=== PATIENT | female | born 1955 | race Caucasian/White ===

== ENCOUNTER 2023-07-07 09:24 | Outpatient (OUT) | payer MEDICARE, OTHER, SELFPAY ==
--- NOTE | 2023-07-07 09:28 | US_ITS ---
[address] [address] Patient Name: TEREZA MCGREGOR MRN: [id number] date: 1955 Sex: F Assigned Patient Location: Current Patient Location: US Accession/Order Number: [id number] Exam Date: 07/07/2023 09:32 Report Date: 07/07/2023 10:05 At the request of: MAAME GERARDO Procedure: US renal BI EXAMINATION: US renal BI HISTORY: Ureteral Stone With Hydronephrosis N13.2 COMPARISON: No relevant comparison available. TECHNIQUE: Ultrasound examination was performed of the bladder. FINDINGS: Right Kidney: Normal in contour. Area of anechoic echogenicity in the upper pole measuring 4.6 cm, simple cyst. Multiple echogenic foci, nonobstructing nephrolithiasis. No solid cortical mass or hydronephrosis. The cortex measures 0.9 cm Height: 5.8 cm Length: 9.2 cm Width: 5.1 cm Multiple echogenic foci, nonobstructing nephrolithiasis. No solid cortical mass or hydronephrosis. The cortex measures 1 cm Areas of anechoic Height: 5.0 cm Length: 8.1 cm Width: 4.4 cm Urinary bladder is normal measuring 179 mL US/US renal BI IMPRESSION: Bilateral nonobstructing nephrolithiasis Electronically authenticated by: GUSTAVO CLEVELAND Date: 07/07/2023 10:05
--- NOTE | 2023-07-07 09:28 | XR_ITS ---
The [address] [address] Patient Name: TEREZA MCGREGOR MRN: [id number] date: 1955 Sex: F Assigned Patient Location: US Current Patient Location: US Accession/Order Number: [id number] Exam Date: 07/07/2023 09:32 Report Date: 07/07/2023 11:10 At the request of: MAAME GERARDO Procedure: XR abdomen 1V EXAMINATION: XR abdomen 1V HISTORY: Ureteral Stone With Hydronephrosis N13.2 COMPARISON: No relevant comparison available. FINDINGS: KIDNEY/URETER - RIGHT: No visible renal or ureteral calcifications. KIDNEY/URETER - LEFT: No visible renal or ureteral calcifications. PELVIS: No visible ureteral calcifications. Any visible calcifications favor phleboliths. BOWEL: No abnormal dilation or deviation. BONES: No acute abnormality. OTHER: Negative. No abnormal gaseous collections. XR/XR abdomen 1V IMPRESSION: No definite urinary tract calculi Electronically authenticated by: GUSTAVO CLEVELAND Date: 07/07/2023 11:10
== END 2023-07-07 09:25 | disposition home or self-care (01) ==
LOC: US 09:24
PROVIDERS: PCP Internal Medicine; Visit Provider Urology
DX: N13.2 Hydronephrosis with renal and ureteral calculous obstruction (principal)
CPT/HCPCS: 74018; 76775

== ENCOUNTER 2025-02-24 11:43 | Outpatient (OUT) | payer MEDICARE, OTHER, SELFPAY ==
--- OUTSIDE RECORDS SUMMARY | 2025-02-22 06:47 | XMS_ITS | Continuity of Care Document ---
Author Organization [facility] Address [address] [place] [address] Phone Care Team Providers Care Business Process Manager Name Role Phone Ezio Bray DO Primary Care Provider [phone] Ezio Bray DO Attending Provider Care Teams Patient Care Team Team Status: Active Member Role/Relationship Status Dates Ezio Bray DO Primary Care Provider Active Visit Care Team Team Status: Inactive Member Role/Relationship Status Dates Ezio Bray DO Primary Care Provider Active Start: December 12, 2024 End: December 12Kasia Bond ProviderActiveStart: December 12, 2024 End: December 12, 2024 Patient Care Team Team Status: Inactive Member Role/Relationship Status Dates Ezio Bray DO Primary Care Provider Active Start: February 22, 2025 End: February 22Kasia Bond ProviderActiveStart: February 22, 2025 End: February 22, 2025 Chief Complaint and Reason for Visit Chief Complaint Admit Date poison fred[place] December 12, 2024 1: 32pm pain on left side February 22, 2025 1 0:11am Reason for Visit Admit Date Gastroesophageal reflux dise ase with esophagitis without hemorrhage December 12, 2024 1:32pm Allergic contact dermatitis December 12, 2024 1:32pm Allergies, Adverse Reactions, Alerts Allergen Type Severity Reaction Last Updated Verified Status No Known Allergies Allergy Unknown February 22, 2025 10:19amYesActive Social History Smoking Status Status Start Date End Date Date of Observa tion Never smoked tobacco (finding) March 24, 2023 4:10pm Observation Status Observation Response Date of Response Legal Sex Female (finding) [facility] 1955 Family History Relationship Condition Age at Onset Recorded Date/T ruddy mother Asthma Unknown Chronic obstructive pulmonary diseaseUnknownDeceasedUnknownfatherCerebral aneurysmUnknownPulmonary emphysemaUnknownDeceasedUnknownbrotherMyocardial infarctionUnknownMalignant neoplasm of prostateUnknown Problems Active Problems Problem Diagnosis/Recorded Date Onset Date Status C omments Medicare annual wellness visit, subsequent January 22, 2025 8:23am Unknown Active Gastroesophageal reflux disease with esophagitis without hemorrhageMarch 2023 12:02pmUnknownActiveAge-related osteoporosis without current pathological fractureMarch 2023 12:02pmUnknownActiveScreening mammogram for breast cancerSept2024 8:24amUnknownActiveDiverticulosisMarch 2023 10:35amUnknownActiveHypercholesterolemiaMarch 2023 12:02pmUnknownActive NephrolithiasisMarch 2023 12:02pmUnknownActiveFamily history of abdominal aortic aneurysmMarch 2023 10:40amUnknownActiveAbnormal ankle brachial index (TORSTEN)July 23, 2023 10:39amUnknownActiveIBS (irritable bowel syndrome) April 23, 2021 9:35amUnknownActiveInactive/Resolved Problems Problem Diagnosis/Recorded Date Onset Date Status C [facility] GERD (gastroesophageal reflux disease) April 23, 2021 9:35am Unknown Resolved Probl em List clean-up per request of Phys. EHR Cmte Abdominal pain April 23, 2021 10:18am Unknown Reso lved Problem List clean-up per request of Phys. EHR Cmte Medications Medication Status Dose Units Route Directions Qty Days Refills S tart Date Stop Date End Date Reason(s) Instructions Adherence Atorvastatin 40 mg tablet Active 40 MG PO Daily 90 90 3 March 02, 2024 8:42am Complies with drug therapyAmitriptyline 10 mg enzfdpQpezafgmkcas90SZPSDqkrgqk as needed for InsomniaDecember 2020 1:00amMarch 2023 12:04pm Atorvastatin 40 mg ssqbjjVpzjvqtwdbyl58KVLTEipvbTpgpy 2023 12:00amOctober 2023 8:43amNirmatrelvir-Ritonavir (Paxlovid) 300 mg (150 mg x 2)-100 mg tablets,dose mvtgDeshgzrjtend3AF.JPNOYCA561Lxnhnzgi 2023 1:00amAugust 2024 1:38pmtake TWO 150 mg tablets of nirmatrelvir with ONE 100 mg tablet of ritonavir twice daily for 5 days POPrednisone 20 mg oefioxIdvotavmlgdf88LJPA As Fxwikvsv034Dqueya 2024 12:00amOctober 2024 10:19am1 tab tid w/ food x 3 days, then bid w/ food x 3 days, then qd w/ food x 3 days Immunizations Immunization Event Date Not Given Reason Dose Number System Software Developer Lot Number Reason(s) Given Vaccine Information Statement (VIS) Detail Administration Location COVID-19 mRNA-1273 (Moderna) July 07, 2020 COVID-19 mRNA-1273 (Moderna)August 04OVID-19 mRNA-1273 (Moderna)April 20, 2021Fluzone TIV High-Dose 65YR+March 01, [id number] [facility] HospitalInflu[facility] vaccine, quadrivalent, adjuvantedOctober [id number] Influenza Quadrivalent PF MDCKOctober [id number], unspecified formulationOctober 2020influenza, unspecified formulationOctober 2021influenza, unspecified formulationOctober 2022influenza, unspecified formulationOctober [id number] Conjugate Vaccine, 13 valent February 06, 2019Pneumococcal Polysacc. Vaccine, 23 valentOctober 2019 Quadrivalent InfluenzaNovember [id number] InfluenzaNovember [id number] Vaccine Recombinant, AdjuvantedSeptember [id number] Tetanus, Diphtheria adult, 5 Lf pres free absOctober 2013 Vital Signs Vital Reading Result Reference Range Collection Date/Time Height 64 [in_i] December 12, 2024 1:50fsVgrsqh19.25 kgAugust 2024 1:36pmHeart Rate72 /min 60-100August 2024 1:36pmRespiratory rate12 /pmu79-37Qwdloz 2024 1:36pmBP Fnjzqngw361 mm[Hg]100-140August 2024 1:36pmBP Orxxefbet86 mm[Hg] 60-100August 2024 1:36pmBMI (Body Mass Index)23.6 kg/h2Bflowm 2024 1:57goSnkgem78 [in_i]February 22, 2025 10:82iiXskfbm83.40 kgOctober 2024 10:22amHeart Rate68 /bkx88-920Ibzzprx 2024 10:22amRespiratory rate12 /min 12-24October 2024 10:22amBP Xjcqfkhw650 mm[Hg]100-140October 2024 10:22amBP Qcopikxpg10 mm[Hg]60-100October 2024 10:22amBMI (Body Mass Index)23.2 kg/m3Nrebxtq 2024 10:22am Advance Directives Advance Directive Response Recorded Date/ Time Advance Directives No August 23 021 5:40pm Insurance Providers Guarantor Dipak Trujillo Address [address] [facility], [place] [address]Loaizns Info.Home Phone: Payer Group Member ID Coverage Type Subscriber Relationship to Subscriber Effective Date Expiration Date JULIANNJena Salazars [place] Id: [id number] Perry , M Id: [id number] [address] [place] [address] Home Phone: Email: [email or web address] Maries [id number] Perry , M Id: [id number] [address] [place] [address] Home Phone: Email: [email or web address] Encounter Location(s) Arrival/Admit Date Discharge/Departure Date Discharge/Departure Disposition Provider(s) Departed Physician/ Provider Office Visit -[facility] December 12, 2024 1:32pm December 12, 2024 1:51pm Discharged to home care or self care (routine discharge) Ezio Bray DO Departed Physician/ Provider Office Visit -[facility] February 22, 2025 10:11am February 22, 2025 10:45am Discharged to home care or self care (routine discharge) Ezio Bray DO Recent Diagnosis Onset Date Admit Date Gastroesophageal reflux dise ase with esophagitis without hemorrhage Unknown December 12, 2024 1:32pm Allergic contact dermatitis Unknown 2024 1:32pm Assessments Diagnosis Onset Date Resolution Status Admit Date Gastroesophageal reflux disease with eso phagitis without hemorrhage acuteAugust 2024 1:32pmAllergic contact dermatitisnoneactiveAugust 2024 1:32pm Plan of Treatment Author Ezio Bray [facility]AuthoredP[facility] 2024 1:53pmTake Pepcid while taking Prednisone Avoid lying flat after eating or eating prior to bedtime Instructed to use cool compresses for itching. She was instructed to use Zyrtec and Benadryl as needed. Begin Prednisone and take w/ food, taper over 9 days Future Tests Future scheduled test information is unavailable Pending Tests Pending diagnostic test information is unavailable Future Visits Future appointment information is unavailable Future Procedures Future procedure information is unavailable Future Medications Future medication information is unavailable Patient Instructions Patient instructions are unavailable
--- NOTE | 2025-02-24 | CT_ITS ---
The [address] [address] Patient Name: TEREZA MCGREGOR MRN: [id number] date: 1955 Sex: F Assigned Patient Location: LAB Current Patient Location: LAB Accession/Order Number: [id number] Exam Date: 02/24/2025 12:59 Report Date: 02/24/2025 19:27 At the request of: ADILSON ARMANDO DO Procedure: CT abdomen pelvis w con CT ABDOMEN AND PELVIS WITH INTRAVENOUS CONTRAST: CLINICAL HISTORY: LEFT LOWER QUADRANT PAIN R10.32 COMPARISON: None TECHNIQUE: Spiral images were obtained through the abdomen and pelvis following the administration of intravenous contrast. This CT exam was performed using one or more following dose reduction techniques: Automated exposure control, adjustment of the mA and/or kV according to patient size, or use of iterative reconstruction technique. FINDINGS: Lung Bases: [Minimal hypoventilatory changes.] Organs:Renal cysts, largest on the right.. Kidneys symmetric in size and enhancement. No hydronephrosis. Otherwise liver, gallbladder, spleen, adrenals and pancreas are unremarkable.[ GI: Mild retained stool the colon. No evidence of obstruction. Minimal colonic diverticulosis. No pericolonic inflammatory changes. Appendix normal.[ Pelvis:[Bladder unremarkable. Uterus unremarkable. No adnexal mass.] Peritoneum/Retroperitoneum:No free fluid. Mild plaque involving the nonaneurysmal aorta.[No free air. Abd wall/Bones:Multilevel facet arthropathy.[ CT/CT abdomen pelvis w con IMPRESSION: Negative acute inflammatory process or bowel obstruction Impression dictated by: Hunter Lincoln M.D. 02/24/2025 7:27 PM Dictation Location: [place] [address] Electronically authenticated by: [id number] Y Date: 02/24/2025 19:27
--- OUTSIDE RECORDS SUMMARY | 2025-02-24 11:50 | XMS_ITS | CCD ---
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 [address] [place] [address] Dr. Louie HicksC AUTO DIFFon [id number] #0.0 103/ulNormal0.0-0.1The [facility] - WestComment on above:Performed By: #### CBC #### [facility] [address] [place] [address] Dr. Louie DowneyBasophils/100 WBC (Bld)0.3 %Normal0.2-2.0[facility] Comment on above:Performed By: #### CBC #### [facility] [address] [place] [address] Dr. Louie Anderson #0.1 103/ulNormal0.0-0.7The [facility] Hospital - WestComment on above: Performed By: #### CBC #### [facility] [address] [place] [address] Dr. Louie Montanezosinophils/100 WBC (Bld)1.1 %Normal0.9-7.0The [facility] Comment on above:Performed By: #### CBC #### [facility] [address] [place] [address] Dr. Louie Montanezrythrocyte distribution width (RBC) [Ratio]13.2 %Nrissz62.0-15.0 The [facility] Hospital - WestComment on above:Performed By: #### CBC #### [facility] [address] [place] [address] Dr. Louie DowneyHematocrit (Bld) [Volume fraction]39.2 %Rpiekm10.0-48.0The [facility] - WestComment on above:Performed By: #### CBC #### [facility] [address] [place] [address] Dr. Louie DowneyHemoglobin (Bld) [Mass/Vol]13.0 g/jSZyznnj41.0-16.0The [facility] Hospital - WestComment on above:Performed By: #### CBC #### [facility] [address] [place] [address] Dr. Louie Ledesma #0.01 10e3/ulNormal0.00-0.03The [facility] Hospital - WestComment on above:Performed By: #### CBC #### [facility] [address] [place] [address] Dr. Louie Ledesma %0.2 %Normal0.0-0.5The [facility] Hospital - WestComment on above: Performed By: #### CBC #### [facility] [address] [place] [address] Dr. Louie Monsalve #1.5 103/ulNormal1.2-3.8The [facility] Hospital - WestComment on above:Performed By: #### CBC #### [facility] [address] [place] [address] Dr. Louie Zamudiohocytes/100 WBC (Bld)22.6 %Edsuqc04.5-60.0The [facility] Hospital - WestComment on above:Performed By: #### CBC #### [facility] [address] [place] [address] Dr. Louie ThomasUAL DIFF REQNONormalThe [facility] Hospital - WestComment on above: Performed By: #### CBC #### [facility] [address] [place] [address] Dr. Louie Sheldon (RBC) [Entitic mass]30.0 mkXrcjpy74.7-34.0The [facility] Hospital - WestComment on above:Performed By: #### CBC #### [facility] [address] [place] [address] Dr. Louie Sheldon (RBC) [Mass/Vol]33.2 g/xONnfxbn38.9-35.2The [facility] Hospital - WestComforest view hospital on above:Performed By: #### CBC #### [facility] [address] [place] [address] Dr. Louie Sheldon (RBC) [Entitic vol]90.5 wWCqcadk39.0-99.0The [facility] Hospital - WestComment on above:Performed By: #### CBC #### [facility] [address] [place] [address] Dr. Louie Everett #0.5 103/ulNormal0.3-0.8The [facility] Hospital - WestComforest view hospital on above:Performed By: #### CBC #### [facility] [address] [address] [address] Louie Hurstocytes/100 WBC (Bld)7.0 %Normal1.7-12.0The [facility] Comment on above:Performed By: #### CBC #### [facility] [address] [place] [address] Dr. Louie ElliottUT #4.5 103/ulNormal1.4-6.5The [facility] Hospital - WestComment on above:Performed By: #### CBC #### [facility] [address] [place] [address] Dr. Louie Elliottutrophils/100 WBC (Bld)68.8 %Faghzf22.0-75.0The [facility] Hospital - WestComment on above:Performed By: #### CBC #### [facility] [address] [place] [address] Dr. Louie Kruegerlet mean volume (Bld) [Entitic vol]8.8 fLCritically low 9.5-13.5The [facility] Hospital - WestComment on above:Performed By: #### CBC #### [facility] [address] [place] [address] Dr. Louie DowneyPLT200 103/zcRqargn731-689Dcv [facility] - WestComment on above: Performed By: #### CBC #### [facility] [address] [place] [address] Dr. Louie DowneyRBC4.33 106/ulNormal4.20-5.40The [facility] Hospital - WestComment on above:Performed By: #### CBC #### [facility] [address] [place] [address] Dr. Louie DowneyWBC6.5 103/ulNormal4.0-11.0The [facility] Hospital - WestComment on above: Performed By: #### CBC #### [facility] [address] [place] [address] Dr. Louie DowneyCT ABD/PELVIS WO CONon [id number] ABD/PELVIS WO CONEXAMINATION: CT ABD/PELVIS WO CON, 03/29/2022 12:11 AM EST HISTORY: Right flank pain COMPARISON: CT abdomen and pelvis 08/19/2016 TECHNIQUE: CT scan of the abdomen and pelvis was performed without IV contrast. CT dose reduction technique was used, including Automated Exposure Control. FINDINGS: Evaluation of the viscera and vasculature is limited without intravenous contrast. TUBES AND IMPLANTS: None. LOWER CHEST: Unremarkable ABDOMEN and PELVIS ABDOMINAL WALL AND SOFT TISSUES: Unremarkable. BONES: No suspicious lesions. Multilevel degenerative changes of the spine. ARTERIES: Mild aortoiliac calcification without aneurysm. Incompletely evaluated VEINS: Incompletely evaluated LYMPH NODES: Unremarkable. PERITONEUM/ RETROPERITONEUM: Unremarkable. BOWEL: No obstruction. APPENDIX: Unremarkable LIVER: No focal lesions. GALLBLADDER: Unremarkable. BILE DUCTS: Not dilated SPLEEN: Unremarkable. PANCREAS: Unremarkable. ADRENALS: Unremarkable. KIDNEYS/ URETERS: Nonobstructing left renal calculi are seen. There is mild right hydronephrosis and hydroureter related to a 4 millimeter calculus seen likely within the intramural portion of the right distal ureter. REPRODUCTIVE ORGANS: Unremarkable URINARY BLADDER: Unremarkable. IMPRESSION: There is mild right hydronephrosis and hydroureter related to a 4 millimeter calculus likely within the intramural portion of the right distal ureter. Nonobstructing left renal calculi are also seen. Electronically authenticated by: ROBYN AGUILERA Date: 2022-03-29 03:11[facility] URINE PROFILEon [id number] Ql (U)NegativeNormal NEGATIVEOhiohealth Marion General HospitalComment on above:Performed By: #### AISHWARYA UMICRO #### [facility] [address] [place] [address] Dr. Louie Duran (U)CLEARNormalCLEAROhiohealth Marion General HospitalComment on above: Performed By: #### AISHWARYA UMICRO #### [facility] [address] [address] [address] Louie Delgadillo (U)LT. YELLOWNormalYELLOWThe [facility] Hospital - WestComment on above:Performed By: #### AISHWARYA UMICRO #### [facility] [address] [place] [address] Dr. Louie Araiza micrscopic examination will be performed if indicated. NormalThe [facility] Hospital - WestComment on above:Performed By: #### LONDON NEFFRO #### [facility] [address] [address] [address] Louie DowneyGlucose Ql (U)NegativeNormalNEGATIVEOhiohealth Marion General HospitalComment on above:Performed By: #### LONDON NEFFRO #### [facility] [address] [address] [address] Louie DowneyHemoglobin Ql (U)SMALLAbnormalNEGATIVEOhiohealth Marion General Hospital Comment on above:Performed By: #### LONDON NEFFRO #### [facility] [address] [place] [address] Dr. Louie DowneyKetones Ql (U)NegativeNormalNEGATIVEOhiohealth Marion General HospitalComment on above:Performed By: #### LONDON NEFFRO #### [facility] [address] [place] [address] Dr. Louie DowneyLEUKOCYTESSMALLAbnormalNEGATIVEOhiohealth Marion General HospitalComment on above:Performed By: #### LASHANDA NEFF #### [facility] [address] [place] [address] Dr. Louie DowneyNitrite Ql (U)NegativeNormalNEGATIVEOhiohealth Marion General HospitalComment on above:Performed By: #### LASHANDA NEFF #### [facility] [address] [place] [address] Dr. Louie DowneypH (U)5.5 [pH]Normal5-9[facility] HospitalComment on above: Performed By: #### LASHANDA NEFF #### [facility] [address] [place] [address] Dr. Louie DowneySPEC GRAVITY<=1.313Sizqhvln2.005-<=1.025[facility] Comment on above:Performed By: #### LASHANDA NEFF #### [facility] [address] [place] [address] Dr. Louie DowneyUA PROTEINNegativeNormalNEGATIVE/ TRACEThe [facility] Comment on above:Performed By: #### LASHANDA NEFF #### [facility] [address] [address] [address] Louie MAJOR INDINDICATEDNormalThe [facility] Hospital - WestComment on above: Performed By: #### LASHANDA NEFF #### [facility] [address] [address] [address] Louie Epstein Qn (U)0.2 {Immanuel'U}/dLNormal0.2 - 1.0The [facility] HospitalComment on above:Performed By: #### LASHANDA NEFF #### [facility] [address] [address] [address] Louie DowneyPROF 14(COMP METB)on [id number] [Mass/Vol]3.4 g/dLNormal 3.4-5.0The [facility] - WestComment on above:Performed By: #### CMP ####[facility] R[address] [place], [place] [address]DrMarcie Downey Albumin/Globulin [Mass ratio]0.9 {ratio}NormalThe [facility] Hospital - WestComment on above:Performed By: #### CMP ####[facility] Casznfc[address] [place], [place] [address]Dr.Louie DowneyALP [Catalytic activity/Vol]75 U/LNormal 46-116The [facility] Hospital - WestComforest view hospital on above:Performed By: #### CMP ####[facility] [address] [address]Dr.Louie DowneyALT [Catalytic activity/Vol]26 U/OCkxofo75-87Dwt [facility] - WestComment on above: Performed By: #### CMP ####[facility] [address] [address]Dr.Louie DowneyAnion gap [Moles/Vol]10.3 mmol/LNormal The [facility] Hospital - WestComment on above:Performed By: #### CMP ####[facility] Vf[address]jeq[address] [place], [place] [address]Dr.Louie ChangAST [Catalytic activity/Vol]22 U/VLeupal47-18Ccq [facility] - WestComment on above: Performed By: #### CMP ####[facility] Tsdfwefnyq[address] [place], [place] [address]Dr.Yilan ChangBilirubin [Mass/Vol]0.7 mg/dLNormal 0.2-1.0The [facility] Hospital - WestComment on above:Performed By: #### CMP ####[facility] Xvennszuob[address] [place], [place] [address]Dr.Yilan Downey Calcium [Mass/Vol]9.3 mg/dLNormal8.5-10.1The [facility] - WestComment on above: Performed By: #### CMP ####[facility] Ifgvx[address]ou[address] [place], [place] [address]Dr.Yilan ChangChloride [Moles/Vol]104 mmol/LNormal 98-107The [facility] - WestComment on above:Performed By: #### CMP ####[facility] Paewyecptk[address] [place], [place] [address]Dr.Yilan ChangCO2 [Moles/Vol]29.4 mmol/FZhcltz91.0-32.0The [facility] Hospital - WestComment on above: Performed By: #### CMP ####[facility] Hcqffuie[address] [place], [place] [address]Dr.Yilan ChangCreatinine [Mass/Vol]0.97 mg/dLNormal 0.55-1.02The [facility] Hospital - WestComment on above:Performed By: #### CMP ####[facility] S[address]qkol[address] [place], [place] [address]Dr. Yilan ChangEGFR-AF KOSOVAN>60Normal>=60The [facility] Hospital - WestComment on above: Performed By: #### CMP ####[facility] Ssc[address]ppvv[address] [place], [place] [address]Dr.Yilan ChangEGFR-NON AF OMJQXBDK97 mL/min/1.73m2 Critically low>=60The [facility] Hospital - WestComforest view hospital on above:Performed By: #### CMP ####[facility] Mohcdjvckf[address] [place], [place] [address]Dr. Yilan ChangGlobulin (S) [Mass/Vol]3.7 g/dLNormalThe [facility] - WestComment on above:Performed By: #### CMP ####[facility] [address] [address]Dr.Louie ChangGlucose [Mass/Vol]98 mg/eHVjhzxr33-809 The [facility] Hospital - WestComment on above:Performed By: #### CMP ####[facility] [address] [address]Dr.Louie Downey Potassium [Moles/Vol]3.7 mmol/LNormal3.5-5.1The [facility] Hospital - WestComment on above:Performed By: #### CMP ####[facility] [address] [address]Dr.Yinasrin ChangProtein [Mass/Vol]7.1 g/dLNormal6.4-8.2 [facility] HospitalComment on above:Performed By: #### CMP ####[facility] Ryfdzndofo[address] [place], [place] [address]Dr.Louie ChangSodium [Moles/Vol]140 mmol/FAsgdiz899-133Vjc [facility] - WestComment on above: Performed By: #### CMP ####[facility] Jngiq[address] [place], [place] [address]Dr.Louie ChangUrea nitrogen [Mass/Vol]30.0 mg/dL Critically high7.0-18.0The [facility] Hospital - WestComment on above:Performed By: #### CMP ####[facility] R[address]mbfcvey[address] [place], [place] [address]Dr. Kelllan ChangUrea nitrogen/Creatinine [Mass ratio]30.9 mg/mgNormLouis Stokes Cleveland VA Medical CenterComment on above:Performed By: #### CMP ####[facility] Vejoky[address] [place], [place] [address]Dr.Kelllan ChangURINE MICROSCOPIC ONLYon 75-94-0198GUMQYYPATBIH SEENNormalNONE SEENThe [facility] Hospital - WestComment on above:Performed By: #### LASHANDA NEFF ####[facility] [address] [place], [place]Dr. Kelllan ChangBacteria identified Cx Nom (U)NOT INDICATEDNormDetwiler Memorial Hospitale [facility] WestComment on above: Performed By: #### AISHWARYA UMICRO ####[facility] [address]vg[address] [place], [place]Dr. Louie ChangCASTNONE SEENNormalNONE SEENOhiohealth Marion General HospitalComment on above:Performed By: #### AISHWARYA UMICRO ####[facility] [address] [place], [place]Dr. Louie DowneyCrystals LM Nom (Urine sed)NONE SEENNormalNONE SEENOhiohealth Marion General HospitalComforest view hospital on above: Performed By: #### AISHWARYA UMICRO ####[facility] [address]ms[address] [place], [place]Dr. Louie ChangEpithelial cells LM Ql (Urine sed)NONE SEENNormalNONE SEEN /RAREThe [facility] Hospital - WestComment on above:Performed By: #### AISHWARYA UMICRO ####[facility] [address] [address]Dr. Loiue DowneyMUCOUSNONE SEENNormalNONE [facility] Comment on above:Performed By: #### AISHWARYA UMICRO ####[facility] Ohxmcfrkdj[address] [place], [place] [address]Dr. Louie DowneyKzdchKIR0-0Jnwvpr0-8 The [facility] Hospital - WestComforest view hospital on above:Performed By: #### AISHWARYA UMICRO ####[facility] [address] [id number]. Louie ChangWBCNONE SEENNormalNONE SEENOhiohealth Marion General HospitalComforest view hospital on above: Performed By: #### AISHWARYA UMICRO ####[facility] [address] [id number]. Louie DowneyDIRECT LDLon 93-74-5883Cdkjzgfmxmb in LDL [Mass/Vol]68 mg/dLFulton County Health CenterComment on above:Performed By: #### ALT, DLDL ####[facility] [address] [place], [place] [address]NeDr. Louie Elena NORMALSEE BELOWNoalThCleveland ClinicComment on above:Result Comment: <100 mg/dl OPTIMAL 100 - 129 mg/dl NEAR OR ABOVE OPTIMAL 130 - 159 mg/dl BORDERLINE HIGH 160 - 189 mg/dl HIGH >190 mg/dl VERY HIGHPerformed By: #### ALT DLDL ####[facility] [address] [address]Dr. Louie OroPTon 84-15-1228AEL [Catalytic activity/Vol]32 U/RPqkham52-22Icd [facility] - WestComment on above:Performed By: #### KAYLENE WALL ####[facility] [address] [address]Dr. Louie Grace AUTO DIFFon 83-66-0839WUID #0.0 103/ulNormal0.0-0.1The [facility] - WestComment on above:Performed By: #### DATCBC #### [facility] Laboratory [address] [place] [address] Dr. Louie DowneyBasophils/100 WBC (Bld)0.5 %Normal0.2-2.0[facility] Comment on above:Performed By: #### DATCBC #### [facility] [address] [place] [address] Dr. Louie Anderson #0.1 103/ulNormal0.0-0.7The [facility] - WestComment on above: Performed By: #### DATCBC #### [facility] [address] [place] [address] Dr. Louie Montanezosinophils/100 WBC (Bld)1.3 %Normal0.9-7.0The [facility] Comment on above:Performed By: #### DATCBC #### [facility] [address] [place] [address] Dr. Louie Montanezrythrocyte distribution width (RBC) [Ratio]13.8 %Zduayf84.0-15.0 The [facility] - WestComment on above:Performed By: #### DATCBC #### [facility] [address] [place] [address] Dr. Louie DowneyHematocrit (Bld) [Volume fraction]41.0 %Rgvyxk72.0-48.0The [facility] - WestComment on above:Performed By: #### DATCBC #### [facility] [address] [place] [address] Dr. Louie DowneyHemoglobin (Bld) [Mass/Vol]13.2 g/gRDqrynl03.0-16.0The [facility] - WestComment on above:Performed By: #### DATCBC #### [facility] [address] [place] [address] Dr. Louie DowneyIG #0.01 10e3/ulNormal0.00-0.03The [facility] on above:Performed By: #### DATCBC #### [facility] [address] [place] [address] Dr. Luoie Ledesma %0.2 %Normal0.0-0.5The [facility] - WestComment on above: Performed By: #### DATCBC #### [facility] [address] [place] [address] Dr. Louie LopezMPH #2.0 103/ulNormal1.2-3.8The [facility] on above:Performed By: #### DATCBC #### [facility] [address] [place] [address] Dr. Louie Lopezmphocytes/100 WBC (Bld)35.4 %Lbyzrg74.5-60.0The [facility] on above:Performed By: #### DATCBC #### [facility] [address] [place] [address] Dr. Louie SheldonH (RBC) [Entitic mass]29.7 wxVzsmdc72.7-34.0The [facility] on above:Performed By: #### DATCBC #### [facility] [address] [place] [address] Dr. Louie SheldonHC (RBC) [Mass/Vol]32.2 g/eAYuajyb38.9-35.2The [facility] HospitalComment on above:Performed By: #### DATCBC #### [facility] [address] [place] [address] Dr. Louie SheldonV (RBC) [Entitic vol]92.3 cUSbcjct91.0-99.0The [facility] - WestComment on above:Performed By: #### DATCBC #### [facility] [address] [place] [address] Dr. Louie Everett #0.5 103/ulNormal0.3-0.8The [facility]ing HospitalComment on above:Performed By: #### DATCBC #### [facility] [address] [place] [address] Dr. Louie Hurstocytes/100 WBC (Bld)9.0 %Normal1.7-12.0The [facility] Comment on above:Performed By: #### DATCBC #### [facility] [address] [place] [address] Dr. Louie Loera #3.0 103/ulNormal1.4-6.5The [facility] - WestComment on above:Performed By: #### DATCBC #### [facility] [address] [place] [address] Dr. Louie Elliottutrophils/100 WBC (Bld)53.6 %Mkmfaj18.0-75.0The [facility] - WestComment on above:Performed By: #### DATCBC #### [facility] [address] [place] [address] Dr. Louie Kruegerlet mean volume (Bld) [Entitic vol]8.5 fLCritically low 9.5-13.5The [facility] - WestComment on above:Performed By: #### DATCBC #### [facility] [address] [place] [address] Dr. Louie ShafferT249 103/hgGsugvz739-849Tyd [facility] - WestComment on above: Performed By: #### DATCBC #### [facility] [address] [place] [address] Dr. Louie ShahidC4.44 106/ulNormal4.20-5.40The [facility] - WestComment on above:Performed By: #### DATCBC #### [facility] [address] [place] [address] Dr. Louie DowneyWBC5.6 103/ulNormal4.0-11.0The [facility] - WestComment on above: Performed By: #### DATJULIAC #### [facility] Laboratory [address] [address] [address] Louie Houston - VITAMIN Don 48-23-5510MMO D 25-OH28.1 ng/mLNormalThe [facility] Hospital - WestComment on above:Performed By: #### HANYVITMaggi ####[facility] Ffamgmtaj[address] [place], [place] [address]Dr. Louie Lynch RANGESSEE BELOWFulton County Health CenterComment on above:Result Comment: <20 ng/mL Vit D deficient 20 - <30 ng/mL Vit D insufficient 30 - 100 ng/mL Vit D sufficient >100 ng/mL Potential ToxicityPerformed By: #### DATVITD ####[facility] Rpxgfdncrf[address] [place], [place] [address]Dr. Louie Allen BMP WITH LIPIDon 55-90-8498Mnima gap [Moles/Vol]10.9 mmol/LNormalThe [facility] Hospital - WestComment on above:Performed By: #### DATBMP ####[facility] [address]rl[address]ns[address] [place], [place] [address]Dr. Louie DowneyCalcium [Mass/Vol]9.0 mg/dLNormal8.5-10.1The Lake [facility] WestComment on above:Performed By: #### DATBMP ####[facility] Kslmkjfq[address] [place], [place] [address]Dr. Louie DowneyChloride [Moles/Vol]104 mmol/WCujymv42-565Wvg [facility] WestComment on above:Performed By: #### DATBMP ####[facility] Xudymgqtdg[address] [place], [place] [address]Dr. Yilan ChangCholesterol [Mass/Vol]335 mg/dLCritically high<=200The [facility] WestComment on above: Performed By: #### DATBMP ####[facility] Qdrnxkqaof[address] [place], [place] [address]Dr. Yilan ChangCholesterol in HDL [Mass/Vol]97 mg/dL Critically junw57-98Ids [facility] WestComment on above:Performed By: #### DATBMP ####[facility] Lndzstdfit[address] [place], [place] [address]Dr. Yilan ChangCholesterol in LDL [Mass/Vol]221.8 mg/dLNormalThCleveland ClinicComment on above:Performed By: #### DATBMP ####[facility] Trighitvef[address] [place], [place] [address]Dr. Yilan ChangCO2 [Moles/Vol]29.2 mmol/RFgnrks16.0-32.0The [facility] WestComment on above: Performed By: #### DATBMP ####[facility] Qjevhnmrnu[address] [place], [place] [address]Dr. Yilan ChangCreatinine [Mass/Vol]0.89 mg/dLNormal 0.55-1.02The [facility] WestComment on above:Performed By: #### DATBMP ####[facility] Racccumfut[address] [place], [place] [address]Dr. Yilan ChangEGFR-AF KOSOVAN>60Normal>=60The [facility]Com[facility] on above: Performed By: #### DATBMP ####[facility] Lhetuopemp[address] [place], [place] [address]Dr. Yilan ChangEGFR-NON AF KOSOVAN>60Normal>=60[facility] HospitalComforest [facility] hospital on above:Performed By: #### DATBMP ####[facility] Qfcrdzjhxs[address] [place], [place] [address]Dr. Yilan Downey Glucose [Mass/Vol]98 mg/qIFmbmqe19-157Tfl [facility] WestComment on above: Performed By: #### DATBMP ####[facility] Ogvocoednx[address] [place], [place] [address]Dr. Louie ChangHDL NORMAL> or = 60 mg/dl - LOW CARDIOVASCULAR RISK <40 mg/dl - HIGH CARDIOVASCULAR RISKFulton County Health CenterComment on above:Performed By: #### DATBMP ####[facility] T[address] [place] [address]Dr. Yilan ChangLDL CALC NORMALSEE BELOWNoVan Wert County HospitalComment on above:Result Comment: <100 mg/dl OPTIMAL 100 - 129 mg/dl NEAR OR ABOVE OPTIMAL 130 - 159 mg/dl BORDERLINE HIGH 160 - 189 mg/dl HIGH >190 mg/dl VERY HIGHPerformed By: #### DATBMP ####[facility] Oducpgpgeq[address] [place], [place] [address]Dr. Louie ChangPotassium [Moles/Vol]4.1 mmol/LNormal3.5-5.1The [facility] Comment on above:Performed By: #### DATBMP ####[facility] Ygomvzmzym[address] [place], [place] [address]Dr. Kelllan ChangSodium [Moles/Vol]140 mmol/L Nuhlei632-109ZgrOhiohealth Marion General HospitalComment on above:Performed By: #### DATBMP ####[facility] Txowdlqtgn8[address] [place], [place] [address]Dr. Louie ChangTriglyceride [Mass/Vol]81 mg/dLNormal<=150The [facility] Comment on above:Performed By: #### DATBMP ####[facility] Wnujhfumyg[address] [place], [place] [address]Dr. Louie ChangUrea nitrogen [Mass/Vol]30.0 mg/dLCritically high7.0-18.0[facility] HospitalComment on above:Performed By: #### DATBMP ####[facility] Eumfbdfnot[address] [place], [place] [address]Dr. Kelllan ChangUrea nitrogen/Creatinine [Mass ratio]33.7 mg/mgNoVan Wert County HospitalComment on above:Performed By: #### DATBMP ####[facility] Vgydccgzeb24[address] [place], [place] [address]Dr. Yilan ChangVLDL CALC16.2 mg/dLFulton County Health CenterComment on above:Performed By: #### DATBMP ####[facility] Fo[address] [place], [place] [address]Ku. Yinasrin ChangMG MAMM SCREEN 3D ENRIKE CADon 27-87-5445TC MAMM SCREEN 3D ENRIKE CADPatient: TEREZA CHANDRA Exam Date: 02/05/2022 : 1955 Gender:F Ordering : DR EZIO ARMANDO D.O. Admission #: [id number] Family : Order #: [id number] CLICK HERE TO VIEW EXAM RADIOLOGY REPORT PROCEDURE: MAMMOGRAM SCREENING 3D BILATERAL CAD COMPARISON: MG MAMM SCREEN ENRIKE W CAD, 10/26/2019. MG MAMM LT DIAG W CAD, 02/18/2017. INDICATIONS: Screening mammography Calculator Name NCI Breast Cancer Risk Assessment Tool 5 Year Breast Cancer Risk 2.40% Lifetime Breast Cancer Risk 7.60% Personal Breast Cancer No Personal Ovarian Cancer No Treatments None Family Cancers Brother with prostate cancer at age 70. LOCATION: [facility] BREAST COMPOSITION: Extremely dense, which lowers the sensitivity of mammography. FINDINGS: DIAGNOSTIC CATEGORY 1--NEGATIVE. NO CHANGE FROM COMPARISON ASSESSMENT. Scattered benign-appearing nodules are present. Scattered benign-appearing calcifications are present. Scattered benign-appearing lymph nodes are present. RIGHT BREAST: No significant suspicious finding. LEFT BREAST: No significant suspicious finding. RECOMMENDATIONS: ROUTINE MAMMOGRAM AND CLINICAL EVALUATION IN 12 MONTHS. PLEASE NOTE: A NORMAL MAMMOGRAM DOES NOT EXCLUDE THE POSSIBILITY OF BREAST CANCER. A CLINICALLY SUSPICIOUS PALPABLE LUMP SHOULD BE BIOPSIED. Dictated by: Gustavo Brewer MD on 02/05/2022 at 09:06 Approved by: Gustavo Brewer MD on 02/05/2022 at 09:08[facility] CenterXR DEXA BONE DENSITYon 14-97-4320WR DEXA BONE DENSITYEXAMINATION: XR DEXA BONE DENSITY, 02/05/2022 7:48 AM EDT HISTORY: Menopause present COMPARISON: DEXA bone densitometry 10/26/2019 TECHNIQUE: Dual-energy X-ray absorptiometry (DEXA) bone density study performed for the axial skeleton. FINDINGS: SPINE ANALYSIS: Average bone mineral density is 1.159 g/cm2. T-score (standard deviation relative to young adult mean): -0.2 . -2.0% change since prior study. HIP ANALYSIS: Lowest bone mineral density is within the left femoral neck, 0.694 g/cm2. T-score (standard deviation relative to young adult mean): -2.5 . -2.6% change since prior study. IMPRESSION: World Scott Organization Classification: Osteoporosis - High Fracture Risk Electronically authenticated by: FRANCISCO MOORE Date: 2022-02-05 08:31NormLouis Stokes Cleveland VA Medical CenterFERRITINon 42-50-7035Lxevloau [Mass/Vol]70.0 ng/mLNormal 8.0-252.0The [facility] - WestComment on above:Performed By: #### FETIBC, FERR #### [facility] Laboratory [address] [place] [address] Dr. Louie Sabillon AND TIBCon 01-27-2022% RTZQRVYQSG53.9 %NormalThe [facility] Hospital - WestComment on above:Performed By: #### FETIBC, FERR #### [facility] Laboratory [address] [place] [address] Dr. Louie Sabillon [Mass/Vol]67.0 ug/fQQsqefw14.0-170.0The [facility] Comment on above:Performed By: #### FETIBC, FERR #### [facility] Laboratory [address] [place] [address] Dr. Louie Hernandez YBVTLK341.0 ug/kWRjmfrz341.0-450.0The [facility] Comment on above:Performed By: #### FETIBC, FERR #### [facility] Laboratory [address] [place] [address] Dr. Louie Marley 04-14-5537CKN8.682 uIU/mLNormal0.358-3.740The [facility] - WestComment on above:Performed By: #### TSH #### [facility] [address] [place] [address] Dr. Louie Gilbertd-19 PCR (CVDTB)on 41-37-3825DRBC-CoV-2 (COVID-19) RNA LEVAR+probe Ql (Unsp spec)DetectedCritically abnormalNOT DETECTEDThe [facility] Hospital - WestComment on above:Result Comment: This test is not yet approved or cleared by the [place] FDA. When there are no FDA-approved or cleared tests available, and other criteria are met, FDA can make tests available under an emergency access mechanism called an Emergency Use Authorization (EUA). The EUA for this test is supported by the [employer] Worker of Health and Human Service's (HHS's) declaration that circumstances exist to justify the emergency use of in vitro diagnostics for the detection and/or diagnosis of the virus that causes COVID-19. This EUA will remain in effect (meaning this test can be used) for the duration of the COVID-19 declaration justifying emergency of IVDs, unless it is terminated or revoked by FDA (after which the test may no longer be used). Performed By: #### CVDTBH #### [facility] [address] [place] [address] Dr. Louie Downey Vital Signs Date TimeVital SignValuePerforming GkgpszdfjFzvwwmza86-39-0739 10:22-0400Body julpqg969.56 cmBenjamin Ball DO Work Phone: [facility]10-22-2025 10:22-0400 Body mass index (BMI) [Ratio]23.2 kg/p3Shisaxde Ball DO Work Phone: [phone] [place], [place] [address]10-22-2025 10:22-0400 Body .4 kgBenjamin Ball DO Work Phone: 1([phone])[phone] [place], [place] [address]10-22-2025 10:22-0400 Diastolic blood aruuvzif71 mm[Hg]Ezio Ball DO Work Phone: [phone] [place], [place] [address]10-22-2025 10:22-0400 Heart rate68 /minBenjamin Ball DO Work Phone: [phone]10-22-2025 10:22-0400 Respiratory rate12 /minBenjamin Ball DO Work Phone: [phone]10-22-2025 10:22-0400 Systolic blood sfnvneay575 mm[Hg]Ezio Ball DO Work Phone: [facility]08-11-2025 13:36-0400 Body vmbwsy111.56 cmBenjamin Ball DO Work Phone: [phone]08-11-2025 13:36-0400 Body mass index (BMI) [Ratio]23.6 kg/q5Gukwvybg Ball DO Work Phone: [phone]08-11-2025 13:36-0400 Body aklbln15.25 kgBenjamin Ball DO Work Phone: [phone]08-11-2025 13:36-0400 Diastolic blood icmfekra56 mm[Hg]Ezio Ball DO Work Phone: [phone]08-11-2025 13:36-0400 Heart rate72 /minBenjamin Ball DO Work Phone: 1(175)656-[address] [place], [place] [address]8-11-2025 13:36-0400 Respiratory rate12 /minBenjamin Ball DO Work Phone: [phone]08-11-2025 13:36-0400 Systolic blood oszzzako315 mm[Hg]Ezio Ball DO Work Phone: [phone]03-12-2024 13:03-0400 Blood Pressure LocationJENNIFER MECHE [facility]03-12-2024 13:03-0400Diastolic blood bipsspor17 mm[Hg]IRIS MECHE [facility]03-12-2024 13:03-0400Heart rate83 /minJENNIFER MECHE [facility]03-12-2024 13:03-0400Respiratory rate16 /minJENNIFER MECHE [facility]03-12-2024 13:03-0400Systolic blood wzsnmwto797 mm[Hg]IRIS CHANDRA [facility]11-21-2023 15:30-0500Body ddfvla611.56 cmBenjamin Ball Other [employer] Other 11-21-2023 15:30-0500Body mass index (BMI) [Ratio] 23.58 kg/n7Qunzgjei Ball Other [employer] Other 11-21-2023 15:30-0500Body ojglvh68.32 kgBenjamin Ball Other [facility] [employer] Other 11-21-2023 15:30-0500Diastolic blood rohmojdt10 mm[Hg] Ezio Ball Other [employer] Other 11-21-2023 15:30-0500Respiratory rate12 /minBenjamin Ball Other [employer] Other 11-21-2023 15:30-0500Systolic blood ywjzoojg079 mm[Hg] Ezio Ball Other [employer] Other 03-22-2023 10:00-0400Blood Pressure LocationKathy Lue [facility]03-22-2023 10:00-0400Diastolic blood doskppjl85 mm[Hg]Lali Lue [facility]03-22-2023 10:00-0400Heart rate67 /minKathy Lue [facility]03-22-2023 10:00-0400Systolic blood mm[Hg]Lali Maxwell [facility]02-08-2023 15:15-0500Body plmszy473.56 cmBenjamin Ball Other [employer] Other 02-08-2023 15:15-0500Body mass index (BMI) [Ratio] 21.69 kg/x4Jlhupbxl Ball Other [employer] Other 02-08-2023 15:15-0500Body uxietb17.34 kgBenjamin Ball Other [employer] Other 02-08-2023 15:15-0500Diastolic blood kubwrijg85 mm[Hg] Ezio Ball Other [employer] Other 02-08-2023 15:15-0500Respiratory rate12 /minBenjamin Ball Other [employer] Other 02-08-2023 15:15-0500Systolic blood ffujmpnc053 mm[Hg] Ezio Ball Other [employer] Other 01-20-2023 10:30-0500Body uxbdxb376.56 cmBenjamin Ball Other [employer] Other 01-20-2023 10:30-0500Body mass index (BMI) [Ratio] 21.63 kg/d2Slofiasb Ball Other [employer] Other 01-20-2023 10:30-0500Body euftwk58.15 kgBenjamin Ball Other [employer] Other 01-20-2023 10:30-0500Diastolic blood fvojrtik20 mm[Hg] Ezio Armando Other [employer] Other 01-20-2023 10:30-0500Respiratory rate12 /minBenjamin Ball Other [employer] Other 01-20-2023 10:30-0500Systolic blood rpvpcalw054 mm[Hg] Ezio Armando Other [employer] Other 01-03-2022 17:00-0500Body .56 cmDavid Hykes Other [employer] Other 01-03-2022 17:00-0500Body mass index (BMI) [Ratio] 21.97 kg/o1Tykcb Hykes Other [employer] Other 01-03-2022 17:00-0500Body ytskte71.06 kgDavid Hykes Other [employer] Other 01-03-2022 17:00-0500Diastolic blood bwatdgjb07 mm[Hg] Gustavo Lundberg Other [employer] Other 01-03-2022 17:00-0500Systolic blood nvnaowts784 mm[Hg] Gustavo Lundberg Other [employer] Other 12-07-2021 14:00-0500Body ciqdar135.56 cmDavid Hykes Other [employer] Other 12-07-2021 14:00-0500Body mass index (BMI) [Ratio] 21.45 kg/f0Mdrsg Hykes Other [facility] Other 12-07-2021 14:00-0500Body izocjq62.7 kgDavid Hykes Other [employer] Other 10-20-2021 16:00-0400Body .56 cmDavid Hykes Other [employer] Other 10-20-2021 16:00-0400Body mass index (BMI) [Ratio] 21.97 kg/a3Dgwfx Hykes Other [employer] Other 10-20-2021 16:00-0400Body iyfwnv06.06 kgDavid Hykes Other [employer] Other Encounters Encounter DateEncounter TypeCare ProviderFacilityStart: 02-22-2025 End: 51-67-5408ukhbkoipahPtzsyjsj Ball DO Work Phone: -[facility]: 02-22-2025 End: 33-73-9441Tspalpv encounter procedureBenjamin Ball DO-[facility] Work Phone: Start: 26-68-2477xdhjdidnxhCghfuq TannaFacility:EU BellevueStart: 72-12-7505Yjhjens encounter procedureBenjamin Ball DO Work Phone: [facility]: 12-12-2024 End: 73-29-8095kgxorklqkmJrjwprnk Ball DO Work Phone: [facility] Work Phone: Start: 12-12-2024 End: 71-11-0519Brnbbhv encounter procedureBenjamin Ball DO-[facility] Work Phone: Start: 03-22-2024 End: 75-17-5132Agululxf ReferredBensandramin Ball DO Work Phone: [facility] Work Phone: Start: 03-22-2024 End: 83-11-3334fwoogvwovkHpfywfer Ball DO Work Phone: [facility] Work Phone: Start: 74-25-7535Wad-patient / Non-visitBensandramin Ball DO Work Phone: [facility] Work Phone: Start: 03-01-2024 End: 76-73-9506Cjbopys encounter procedureBensandramin Ball DO Work Phone: [facility] Work Phone: Start: 07-14-2023 End: 53-71-9990Lxphhfb encounter procedureJENNIFER E MECHE [facility] start: 03-24-2023 End: 96-20-4625ervxnlbkkeVftvhgxo Ball Other [employer] Other Start: 48-35-9696Wrsfmfn encounter procedureBenjamin Wes [facility] ClinicStart: 02-17-2023 End: 45-81-2575ioiwinbagzYyklcyxb Ball Other noPLAXD [employer] Other Start: 64-04-9375Ikmekgmzz encounterBenjaserafin [facility]ando Medical ClinicStart: 02-13-2023 End: 09-55-6878wvpdgqoqtuGgkvanjy Ball Other [employer]D [employer] Other Start: 60-69-7888Ezwrhfq evaluation of patient and reportBenjamin BallFPG [facility] ClinicStart: 08-19-2022 End: 04-76-7993zxoanqlcifOK FRANCISCO MOOREFacility:A9Fnepo: 07-23-2022 End: 76-01-9903Isacrts encounter Hector Maxwell [facility] start: 07-07-2022 End: 61-11-1177rlujqwbfjeKdvnkbbh Ball Other [employer] Other Start: 26-38-3183Ujbczzzah encounterBenjamin BallFPG [facility] ClinicStart: 07-06-2022 End: 54-52-2355oatdvlexfmSY EZIO ARMANDOFacility:B4Qvmor: 06-18-2022 End: 15-97-6399ugopsclpujWwacvykn Ball Other [employer] Other Start: 30-29-2183Rgtznmqmd encounterBenjamin BallFPG [facility] ClinicStart: 06-11-2022 End: 05-72-3224azguaejvfzCyjzemzn Ball Other [employer] Other Start: 32-70-5396Wqqtcd outpatient visit 15 minutes Ezio BallFPG [facility] ClinicStart: 05-26-2022 End: 87-37-2564cbmkmpjxxoWrtvlvuz Ball Other [employer] Other Start: 03-64-5160Jacuibsqv encounterBenjamin BallFPG [facility] ClinicStart: 05-23-2022 End: 38-69-6665foyyxospgcKgybvirx Ball Other [employer] Other Start: 07-38-2814Waniul outpatient visit 15 minutes Ezio BallFPG [facility] ClinicStart: 05-08-2022 End: 31-53-9724dricbcpynoXzeresdi Ball Other [employer] Other Start: 16-26-5820Ffiryvfmc encounterBenhazel Armando Medical ClinicStart: 05-07-2022 End: 35-58-9762gockqksydhYP NONE LISTED REQUESTFacility:F8Rzrav: 03-29-2022 End: 53-69-7747vandbkfytfDH BJ ZAVALA .Facility:D0Uczky: 03-18-2022 End: 53-00-2836hfmhugkenrYP EZIO BALLFacility:O9Ehxtb: 02-05-2022 End: 88-25-3991lrshjkorwnAY EZIO BALLFacility:F0Kbvro: 77-60-2930Vcpvw health examinationBeyana Armando Other [employer]CLC Other Start: 22-53-6826Qoyuwgkicyweh examination normal Ezio Armando Other [employer] Other Start: 01-27-2022 End: 99-54-7619fhqhwzkrisCP EZIO BALLFacility:G4Zlobc: 12-03-2021 End: 30-02-4878nhfdktjdplMX EZIO ARMANDOFacility:C1Hlkxj: 08-21-2021 End: 20-00-2779xygzvewfteQgpemf Kelley Other [employer]NCLC Other Start: 00-58-0053Davnugzuz encounterJustferny AguirreFPJosefa Paulson OrthopedicsStart: 05-06-2021 End: 42-36-8526pmxbniwuclPqwxz Hyshaw Other noNCLC Other Start: 86-87-8566Povnkz outpatient visit 25 minutes Gustavo Moreno GastroenterologyStart: 04-09-2021 End: 04-41-2321vyqnxlejmwJijzk Hykes Other [facility] [employer] Other Start: 74-87-0228Athuym outpatient visit 25 minutes Gustavo Moreno GastroenterologyStart: 03-25-2021 End: 01-23-9589bphrizallgZwcnfn Kelley Other [employer] Other Start: 08-70-0747Oqfjdc outpatient visit 25 minutes Nahum Paulson OrthopedicsStart: 00-73-9330Sgaqvhxpf by computer link Gustavo Moreno GastroenterologyStart: 50-76-3557Znlhca outpatient new 45 minutes Gustavo Moreno GastroenterologyStart: 98-67-3678Niqpaodbb encounterDavimaggi ROUSE Gastroenterology Procedures DateProcedureProcedure DetailPerforming ClinicianStart: 05-04-2020 Esophagogastroduodenoscopy gastric outlet reductionKathy Lue Start: 14-74-7580Kzhlohd examination of patientBenjamin Ball Other Start: 57-80-0219Gltufidir mammographyBenjamin Ball Other Start: 21-98-3788Mrsdewkj and curettageKathy Lue ColonoscopyKathy Lue Depression screeningBenjamin Ball Other MammographyBenjamin Ball Other Screening for malignant neoplasm of breastBenjamin Ball Other Screening for osteoporosisBenjamin Ball Other Immunizations Immunization DateImmunizationNotesCare QdclviukKekhrckq29-59-1392wxsehmgzr, high dose seasonal, preservative-freeBenjamin Ball DO Work Phone: [facility]10-13-2023influenza, high dose seasonal, preservative-freeBenjamin Ball Other noPL[employer]D [employer] Other 10697608-54-9131gpaacjpid virus vaccine, unspecified formulationBenjamin Ball DO Work Phone: [facility]10-20-2022influenza virus vaccine, split virus (incl. purified surface antigen)Ezio Armando Other [facility] [employer] Other 10-350409-69-5008stbnliuky virus vaccine, unspecified formulationBenjamin Ball DO Work Phone: [facility]12-18-2021SARS-CoV-2 (COVID-19) mRNA-1273 vaccineKathy Lue [facility] HospitalComment on above:Result Comment: 2022-07-22: FKP7655-04-6773ltyartgnw virus vaccine, split virus (incl. purified surface antigen)Ezio Armando Other [facility] [employer] Other 10-591979-44-4173vpvyoqbzw virus vaccine, unspecified formulationBenjamin Ball DO Work Phone: [facility]07-22-2021Kenalog -40 mgDavid Hykes Other [employer] Other 04-028097-57-3904Mndzmnw -40 mgDavid HyMobilligy Other [employer] Other 04-194157-14-5490OZHN-RgS-0 (COVID-19) mRNA-1273 vaccineKathy Lue [facility]03-06-2021SARS-CoV-2 (COVID-19) mRNA-1273 vaccineKathy Lue [facility]10-15-2020Influenza vaccine, quadrivalent, adjuvantedBenjamin Ball DO Work Phone: [facility]10-15-2020influenza virus vaccine, unspecified formulationKathy Lue [facility]10-15-2020pneumococcal polysaccharide vaccine, 23 valentKathy Lue [facility]09-13-2020zoster vaccine recombinantKathy Lue [facility]10-06-2019influenza virus vaccine, unspecified formulationKathy Lue [facility]10-06-2019Influenza, injectable, Madin Adilia Canine Kidney, preservative free, quadrivalentBenjamin Ball DO Work Phone: [facility]10-06-2019 pneumococcal conjugate vaccine, 13 valentKathy Lue [facility]11-05-2018influenza virus vaccine, unspecified formulationKathy Lue [facility]11-05-2018influenza, injectable, quadrivalent, preservative freeBenjamin Ball DO Work Phone: [facility]10-31-2017influenza virus vaccine, unspecified formulationBenjamin Ball DO Work Phone: [facility]10-31-2017influenza, unspecified formulationKathy Lue [facility]11-06-2015influenza virus vaccine, unspecified formulationKathy Lue [facility]11-06-2015influenza, injectable, quadrivalent, preservative freeEzio Armando DO Work Phone: [facility]10-28-2014tetanus and diphtheria toxoids, adsorbed, preservative free, for adult use (5 Lf of tetanus toxoid and 2 Lf of diphtheria toxoid)Ezio Armando Other [facility] Payers DatePayer CategoryPayerPolicy [id number] 1960Medicare [id number]-[id number] [id number] [id number] [id number] 2.16840.1.804788.3.57[id number] 2.840.1.778801.3.57[id number] 2.840.1.385649.3.57[id number] 2.840.1.237359.3.57[id number] 2.16840.1.111996.3.57[id number] 2.16840.1.320681.3.57[id number] 2.16840.1.463994.3.57[id number] 2.16840.1.1[id number] 2..840.1.665501.3.579.2.593Unknown [id number] 2..840.1.1[id number] 2..840.1.052529.3.579.2.531 Social History DateTypeDetailFacilitySex Assigned At [facility] 07-23-2022 End: 61-07-5579Rmhwtjm smoking statusNever smoked tobacco (finding)[facility] HospitalTobacc smoking statusNever [facility]: 24-26-4052Nte Patient sex unknown (finding)[facility] 1955 [facility] (finding) [facility] Functional Status Zzg[id number] StatusN/A[facility]03[facility]22-2023Functional StatusN/A[facility] Clinical Notes 02-20-2021 to 12-12-2024 Note Date & [id number] Evaluation note* Diagnosis Onset Date Resolution Status Admit Date Gastroesophageal reflux disease with eso phagitis without hemorrhage acuteAugust 2024 1:32pmAllergic contact dermatitisnoneactiveAugust 2024 1:32pm [facility] Work Phone: [phone]) 225-882411-19-2024 Radiology [facility] [place] [address] Ultrasound Report Signed Patient: Tereza Chandra MR#: [id number] : 1955 Acct:[id number] Age/Sex: 68 / F ADM Date: 4 Loc: Room: Type: [facility] Attending Dr: Allison Community Ordering Provider: ALLISON FRANCIS Date of Service: 03/22/24 US/US community outreach aorta: SCREENING Copies to: COMMUNITY,OUTREACH ~ Screening ultrasound of the abdominal aorta HISTORY: Screening There is no abdominal aortic aneurysm. Iliac arteries unremarkable. Atherosclerosis US/US community outreach aorta IMPRESSION: No abdominal aortic aneurysm. Impression dictated by: Domo Romero M.D.03/22/2024 9:22 PM Dictation Location: [place] [address] Tech: Safia Buckley Transcribed By: KATHERIN 03/22/242121 Dictated By: Domo Romero DO 03/22/242121 Signed By: 03/22/242121 [facility]03-12-2024 Hospital Discharge instructions Patient Education 07/14/2023 13:00:49 Dietary Guidelines to Help Prevent Kidney Stones Dietary Guidelines to Help Prevent Kidney Stones Kidney stones are deposits of minerals and salts that form inside your kidneys. Your risk of developing kidney stones may be greater depending on your diet, your lifestyle, the medicines you take, and whether you have certain medical conditions. Most people can lower their risks of developing kidney stones by following these dietary guidelines. Your dietitian may give you more specific instructions depending on your overall health and the type of kidney stones you tend to develop. What are tips for following this plan? Reading food labels Choose foods with no salt added or low-salt labels. Limit your salt (sodium) intake to less than 1,500 mg a day. Choose foods with calcium for each meal and snack. Try to eat about 300 mg of calcium at each meal.Foods that contain 200 500 mg of calcium a serving include: ?8 oz (237 mL) of milk, ykwiseq-hpngeaiebkku-ohaik milk, and calcium- fortifiedfruit juice. Calcium-fortified means that calcium has been added to these drinks. ?8 oz (237 mL) of kefir, yogurt, and soy yogurt. ?4 oz (114 g) of tofu. ?1 oz (28 g) of cheese. ?1 cup (150 g) of dried figs. ?1 cup (91 g) of cooked broccoli. ?One 3 oz (85 g) can of sardines or mackerel. Most people need 1,000 1,500 mg of calcium a day. Talk to your dietitian about how much calcium is recommended for you. Shopping Buy plenty of fresh fruits and vegetables. Most people do not need to avoid fruits and vegetables, even if these foods contain nutrients that may contribute to kidney stones. When shopping for convenience foods, choose: ?Whole pieces of fruit. ?Pre-made salads with dressing on the side. ?Low-fat fruit and yogurt smoothies. Avoid buying frozen meals or prepared deli foods. These can be high in sodium. Look for foods with live cultures, such as yogurt and kefir. Choose high-fiber grains, such as whole-wheat breads, oat bran, and wheat cereals. Cooking Do not add salt to food when cooking. Place a salt shaker on the table and allow each person to addtheir own salt to taste. Use vegetable protein, such as beans, textured vegetable protein (TVP), or tofu, instead of meat inpasta, casseroles, and soups. Meal planning Eat less salt, if told by your dietitian. To do this: ?Avoid eating processed or pre-made food. ?Avoid eating fast food. Eat less animal protein, including cheese, meat, poultry, or fish, if told by your dietitian. To dothis: ?Limit the number of times you have meat, poultry, fish, or cheese each week. Eat a diet free of meat at least 2 days a week. ?Eat only one serving each day of meat, poultry, fish, or seafood. ?When you prepare animal proteins, cut pieces into small portion sizes. For most meat and fish, oneserving is about the size of the palm of your hand. Eat at least five servings of fresh fruits and vegetables each day. To do this: ?Keep fruits and vegetables on hand for snacks. ?Eat one piece of fruit or a handful of berries with breakfast. ?Have a salad and fruit at lunch. ?Have two kinds of vegetables at dinner. You may be told to limit foods that are high in a substance called oxalate. These include: ?Spinach (cooked), rhubarb, beets, sweet potatoes, and [place] chard. ?Peanuts. ?Potato chips, turkmen fries, and baked potatoes with skin on. ?Nuts and nut products. ?Chocolate. If you regularly take a diuretic medicine, make sure to eat at least 1 or 2 servings of fruits or vegetables that are high in potassium each day. These include: ?Avocado. ?Banana. ?Manlius, prune, carrot, or tomato juice. ?Baked potato. ?Cabbage. ?Beans and split peas. Lifestyle Drink enough fluid to keep your urine pale yellow. This is the most important thing you can do. Spread your fluid intake throughout the day. If you drink alcohol: ?Limit how much you have to: ?0 1 drink a day for women who are not . ?0 2 drinks a day for men. ?Know how much alcohol is in your drink. In the [place] one drink equals one 12 oz bottle of beer (355 mL), one 5 oz glass of wine (148 mL), or one 1 oz glass of hard liquor (44 mL). Lose weight if told by your health care provider. Work with your dietitian to find an eating plan and weight loss strategies that work best for you. General information Talk to your health care provider and dietitian about taking daily supplements. Depending on your health and the cause of your kidney stones, you may be told: ?Do not take high-dose supplements of vitamin C (1,000 mg a day or more). ?To take a calcium supplement. ?To take a daily probiotic supplement. ?To take other supplements such as magnesium, fish oil, or vitamin B6. Take ycsq-hth-ncjlaix and prescription medicines only as told by your health care provider. These include supplements. What foods should I limit? Limit your intake of the following foods, or eat them as told by your dietitian. Vegetables Spinach. Rhubarb. Beets. Canned vegetables. Pickles. Olives. Baked potatoes with skin. Grains Wheat bran. Baked goods. Salted crackers. Cereals high in sugar. Meats and other proteins Nuts. Nut butters. Large portions of meat, poultry, or fish. Salted, precooked, or cured meats, such as sausages, meat loaves, and hot dogs. Dairy Cheeses. Beverages Regular soft drinks. Regular vegetable juice. Seasonings and condiments Seasoning blends with salt. Salad dressings. Soy sauce. Ketchup. Barbecue sauce. Other foods Canned soups. Canned pasta sauce. Casseroles. Pizza. Lasagna. Frozen meals. Potato chips. Thai fries. The items listed above may not be a complete list of foods and beverages you should limit. Contact a dietitian for more information. What foods should I avoid? Talk to your dietitian about specific foods you should avoid based on the type of kidney stones youhave and your overall health. Fruits Grapefruit. The item listed above may not be a complete list of foods and beverages you should avoid. Contact adietitian for more information. Summary Kidney stones are deposits of minerals and salts that form inside your kidneys. You can lower your risk of kidney stones by making changes to your diet. The most important thing you can do is drink enough fluid. Drink enough fluid to keep your urine pale yellow. Talk to your dietitian about how much calcium you should have each day, and eat less salt and animal protein as told by your dietitian. This information is not intended to replace advice given to you by your health care provider. Make sure you discuss any questions you have with your health care provider. Document Revised: 07/31/2022 Document Reviewed: 07/31/2022 [employer] Patient Education 2022 [employer]. Follow Up Care 07/14/2023 11:42:30 With:IRIS CHANDRA PA-C, URL Address: [address] [facility] [place] [address] When: Unknown [facility] 11-21-2023 Evaluation note* Encounter Date Diagnosis Assessment Notes Treatment Notes Treatment Clinical Notes Mar, Medicare annual wellness visit, subsequent (ICD-10 - Z00.00) Personalized health advice was given to the beneficiary including a written plan for screenings discussed and provided. Advanced care planning reviewed and/or information given as requested. Additional counseling was provided here today in regards to, [ ]. The above visit was performed by [ ], under direct supervision of [ ]. Document reviewed and amended by provider signed below. Mar,astroesophageal reflux disease with esophagitis without hemorrhage (ICD-10 - K21.00)Diet instructions: Smaller portions, avoid eating and laying flat, avoid eating or drinking prior to bedtime. Weight loss. Mar,ge-related osteoporosis without current pathological fracture (ICD- 10 - M81.0)Ca and Vit D supplements. Weight bearing exercises. Discuss bone strengthening treatment: Prolia, Reclast and Alendronate Mar,Hypercholesterolemia (ICD-10 - E78.00)Instructed on diet and exercise with continued statin therapy.Discussed the beneficial effects of lo wering cholesterol in reducing the risk for cerebrovascular and cardiovascular disease. Mar,Other irritable bowel syndrome (ICD-10 - K58.8)High fiber diet Metamucil daily UTD w/ CRC screening Mar,Screening mammogram for breast cancer (ICD-10 - Z12.31)Instructed patient on monthly SBE and yearly mammograms. Mar,Hx of renal calculi (ICD-10 - Z87.442)Push fluids. No s/s recurrent renal colic [employer] Other 03-22-2023 Hospital Discharge instructions Patient Education 07/23/2022 10:27:44 Dietary Guidelines to Help Prevent Kidney Stones Dietary Guidelines to Help Prevent Kidney Stones Kidney stones are deposits of minerals and salts that form inside your kidneys. Your risk of developing kidney stones may be greater depending on your diet, your lifestyle, the medicines you take, and whether you have certain medical conditions. Most people can reduce their chances of developing kidney stones by following the instructions below. Depending on your overall health and the type of kidney stones you tend to develop, your dietitian may give you more specific instructions. What are tips for following this plan? Reading food labels Choose foods with no salt added or low-salt labels. Limit your sodium intake to less than 1500 mg per day. Choose foods with calcium for each meal and snack. Try to eat about 300 mg of calcium at each meal.Foods that contain 200 500 mg of calcium per serving include: ?8 oz (237 ml) of milk, fortified nondairy milk, and fortified fruit juice. ?8 oz (237 ml) of kefir, yogurt, and soy yogurt. ?4 oz (118 ml) of tofu. ?1 oz of cheese. ?1 cup (300 g) of dried figs. ?1 cup (91 g) of cooked broccoli. ?1 3 oz can of sardines or mackerel. Most people need 1000 to 1500 mg of calcium each day. Talk to your dietitian about how much calciumis recommended for you. Shopping Buy plenty of fresh fruits and vegetables. Most people do not need to avoid fruits and vegetables, even if they contain nutrients that may contribute to kidney stones. When shopping for convenience foods, choose: ?Whole pieces of fruit. ?Premade salads with dressing on the side. ?Low-fat fruit and yogurt smoothies. Avoid buying frozen meals or prepared deli foods. Look for foods with live cultures, such as yogurt and kefir. Cooking Do not add salt to food when cooking. Place a salt shaker on the table and allow each person to addhis or her own salt to taste. Use vegetable protein, such as beans, textured vegetable protein (TVP), or tofu instead of meat in pasta, casseroles, and soups. Meal planning Eat less salt, if told by your dietitian. To do this: ?Avoid eating processed or premade food. ?Avoid eating fast food. Eat less animal protein, including cheese, meat, poultry, or fish, if told by your dietitian. To dothis: ?Limit the number of times you have meat, poultry, fish, or cheese each week. Eat a diet free of meat at least 2 days a week. ?Eat only one serving each day of meat, poultry, fish, or seafood. ?When you prepare animal protein, cut pieces into small portion sizes. For most meat and fish, one serving is about the size of one deck of cards. Eat at least 5 servings of fresh fruits and vegetables each day. To do this: ?Keep fruits and vegetables on hand for snacks. ?Eat 1 piece of fruit or a handful of berries with breakfast. ?Have a salad and fruit at lunch. ?Have two kinds of vegetables at dinner. Limit foods that are high in a substance called oxalate. These include: ?Spinach. ?Rhubarb. ?Beets. ?Potato chips and turkmen fries. ?Nuts. If you regularly take a diuretic medicine, make sure to eat at least 1 2 fruits or vegetables high in potassium each day. These include: ?Avocado. ?Banana. ?Manlius, prune, carrot, or tomato juice. ?Baked potato. ?Cabbage. ?Beans and split peas. General instructions Drink enough fluid to keep your urine clear or pale yellow. This is the most important thing you can do. Talk to your health care provider and dietitian about taking daily supplements. Depending on your health and the cause of your kidney stones, you may be advised: ?Not to take supplements with vitamin C. ?To take a calcium supplement. ?To take a daily probiotic supplement. ?To take other supplements such as magnesium, fish oil, or vitamin B6. Take all medicines and supplements as told by your health care provider. Limit alcohol intake to no more than 1 drink a day for non women and 2 drinks a day for men. One drink equals 12 oz of beer, 5 oz of wine, or 1 oz of hard liquor. Lose weight if told by your health care provider. Work with your dietitian to find strategies and an eating plan that works best for you. What foods are not recommended? Limit your intake of the following foods, or as told by your dietitian. Talk to your dietitian about specific foods you should avoid based on the type of kidney stones and your overall health. Grains Breads. Bagels. Rolls. Baked goods. Salted crackers. Cereal. Pasta. Vegetables Spinach. Rhubarb. Beets. Canned vegetables. Pickles. Olives. Meats and other protein foods Nuts. Nut butters. Large portions of meat, poultry, or fish. Salted or cured meats. Deli meats. Hotdogs. Sausages. Dairy Cheese. Beverages Regular soft drinks. Regular vegetable juice. Seasonings and other foods Seasoning blends with salt. Salad dressings. Canned soups. Soy sauce. Ketchup. Barbecue sauce. Canned pasta sauce. Casseroles. Pizza. Lasagna. Frozen meals. Potato chips. Thai fries. Summary You can reduce your risk of kidney stones by making changes to your diet. The most important thing you can do is drink enough fluid. You should drink enough fluid to keep your urine clear or pale yellow. Ask your health care provider or dietitian how much protein from animal sources you should eat eachday, and also how much salt and calcium you should have each day. This information is not intended to replace advice given to you by your health care provider. Make sure you discuss any questions you have with your health care provider. Document Released: 08/15/2011 Document Revised: 08/10/2019 Document Reviewed: 03/31/2017 [employer] Patient Education 2019 [employer]. Follow Up Care 05/29/2022 11:33:44 With:Hans MONROE, OSCAR Mojica, URO Address: When: Unknown [facility] 03-06-2023 Evaluation note* Encounter Date Diagnosis Assessment Notes Treatment Notes Treatment Clinical Notes Jul, Acute pain of right knee (ICD-10 - M25.561) [employer] Other 03-06-2023 NotePROCEDURE: XR KNEE RT 4V or > COMPARISON: 09/05/2019 HISTORY: Pain of right knee joint FINDINGS: BONES:No acute fracture or dislocation. Moderate narrowing of medial joint space. Degenerative osteoarthritis with marginal osteophyte formation anterior and medial compartments SOFT TISSUES:Negative. No visible soft tissue swelling. EFFUSION:None visible. OTHER: Negative. IMPRESSION: Moderate medial compartment osteoarthritis Electronically authenticated by: GUSTAVO BREWER Date: 2022-07-07 06:39[id number] Evaluation note* Encounter Date Diagnosis Assessment Notes Treatment Notes Treatment Clinical Notes Jun, Acute pain of right knee (ICD-10 - M25.561) [employer] Other 02-08-2023 Evaluation note* Encounter Date Diagnosis Assessment Notes Treatment Notes Treatment Clinical Notes Jun, Contusion of right knee, initial encounter (ICD-10 - S80.01XA) Ice, heat and Voltaren Gel. Tylenol and Aleve as needed. Bracing can be tried. Elevate and avoid future falls Jun, 3Contusion of left knee, initial encounter (ICD-10 - S80.02XA)Ice, heat and Voltaren Gel. Tylenol and Aleve as needed. Bracing can be tried. Elevate and avoid future falls Jun, ontusion of right hand, initial encounter (ICD-10 - S60.221A)Ice and Tylenol as needed. [employer] Other 01-20-2023 Evaluation note* Encounter Date Diagnosis Assessment Notes Treatment Notes Treatment Clinical Notes May, Ureteral stone with hydronephros is (ICD-10 - N13.2) Push fluids, hold calcium supplement but continue dietary calcium. Referral to Urology for continued pain May,Irritable bowel syndrome with constipation (ICD-10 - K58.1)High fiber diet. May,ge-related osteoporosis without current pathological fracture (ICD- 10 - M81.0)Dietary calcium and vitamin D supplements. Declined Bisphosphonate treatment. Continue weight bearing exercises May,ontact dermatitis and eczema (ICD-10 - L25.9)Avoid over washing w/ harsh detergents. Moisturize. Topical steroids as needed for itching [employer] Other 01-03-2022 Evaluation note* Encounter Date Diagnosis Assessment Notes Treatment Notes Treatment Clinical Notes May, GERD (gastroesophageal reflux di sease) (ICD-10 - K21.9) May,Irritable bowel syndrome with constipation (ICD-10 - K58.1) CONTINUE SENOKOT May,Gastritis (ICD-10 - K29.70) May,ther STOP AMITRIPTYLINE START DICYCLOMINE [employer] Other 12-07-2021 Evaluation note* Encounter Date Diagnosis Assessment Notes Treatment Notes Treatment Clinical Notes Apr, Irritable bowel syndrome with co nstipation (ICD-10 - K58.1) COLONOSCOPY Apr,UQ abdominal pain (ICD-10 - R10.12) Apr,GERD (gastroesophageal reflux disease) (ICD-10 - K21.9) EGD [employer] Other 11-22-2021 Evaluation note* Encounter Date Diagnosis Assessment Notes Treatment Notes Treatment Clinical Notes Mar, Primary osteoarthritis of both k nees (ICD-10 - M17.0) Today we have discussed degenerative joint disease of the knee and its treatment. Imaging was discussed and explained to the patient. We discussed recommended conservative therapies including physical therapy, anti-inflammatory medications, and weight loss strategies. We also discussed other treatment options including cortisone injections, Visco supplementation injections which are options for treatment. I have laid out the course of knee DJD including the end-stage treatment of total joint arthroplasty. The patient recognizes and understands our options and goals and we will move forward with our treatment. Today we have repeated cortisone injection. Under sterile technique patient's bilateral knee was injected with 4 cc of Marcaine 1 cc of Kenalog via the inferolateral portal, she tolerated this well without any acute signs of adverse reaction. I will see them back in 6 weeks or as needed. Mar,cute pain of left knee (ICD-10 - M25.562) We performed a 4/1cc marcaine / kenalog cortisone injection into the knee joint under sterile technique. Patient tolerated the injection well without adverse reaction. Mar,cute pain of right knee (ICD-10 - M25.561) We performed a 4/1cc marcaine / kenalog cortisone injection into the knee joint under sterile technique. Patient tolerated the injection well without adverse reaction. [employer] Other 10-20-2021 Evaluation note* Encounter Date Diagnosis Assessment Notes Treatment Notes Treatment Clinical Notes Feb, LUQ abdominal pain (ICD-10 - R10 .12) CT ABD / PELVIS W/ CONTRAST CONTINUE AMITRIPTYLINE FOR NOW Feb,onstipation (ICD-10 - K59.00) STOP MIRALAX START LINZESS 72 MCG DAILY Feb,Irritable bowel syndrome with constipation (ICD-10 - K58.1) [employer] Other Evaluation + Plan note Future Appointments Appointment Date:08/05/2023 10:15:00 AM Scheduled Provider:Hans MONROE, Lali Maurice Location:[facility] Appointment Type:URO Office Visit [facility] evaluation noteNo InformationNort [employer] Other Evaluation noteNo assessment information available [facility] Work Phone: History general Narrative - Reported* Type Description Date Medical History GERD Medical HistoryIBSSurgical HistoryD&CHospitalization HistoryNo Hospitalization history information [employer] Other History general Narrative - Reported* Type Description Date Medical History Nephrolithiasis Medical HistoryAntral gastritisMedical HistoryPure hypercholesterolemiaMedical HistoryHair lossMedical HistoryAnemiaMedical HistoryOlecranon bursitis of right elbowMedical HistoryAllergic conjunctivitis, bilateralMedical HistoryIrritable bowel syndrome with constipationMedical HistoryLUQ abdominal painMedical History Complex tear of medial meniscus of left knee as current injury, initial encounterMedical HistoryGastroesophageal reflux disease with esophagitis without hemorrhageMedical HistoryHypokalemiaMedical HistoryLeft breast massMedical HistoryBreast densityMedical HistoryPain in female pelvisMedical HistoryFatigue Surgical [id number] HistoryCOLONOSCOPYSurgical RjvjryoBNI26/2021 Hospitalization HistorySEE SURGICAL [employer] Other History general Narrative - Reported* Type Description Date Medical History Nephrolithiasis Medical HistoryAntral gastritisMedical HistoryPure hypercholesterolemiaMedical HistoryHair lossMedical HistoryAnemiaMedical HistoryOlecranon bursitis of right elbowMedical HistoryAllergic conjunctivitis, bilateralMedical HistoryIrritable bowel syndrome with constipationMedical HistoryLUQ abdominal painMedical History Complex tear of medial meniscus of left knee as current injury, initial encounterMedical HistoryGastroesophageal reflux disease with esophagitis without hemorrhageMedical HistoryHypokalemiaMedical HistoryLeft breast massMedical HistoryBreast densityMedical HistoryPain in female pelvisMedical HistoryFatigue Medical Historyosteonecrosis left femoral headSurgical [id number] HistoryCOLONOSCOPYSurgical DgdohocRYT72/2021Hospitalization HistorySEE SURGICAL [employer] Other Hospital course Narrative No data available for this section [facility] progress note No data available for this section [facility] reason for referral (narrative)* Reason 07/23/22 Evaluatio n and treatment of ureteral stone. Diagnosis 1 Ureteral stone with hydronephrosis (N13.2) Referral Organization [facility] todd Referring Provider First Name Ezio Referring Provider Last Name Asa Referring Provider Specialty Internal Me dicine Referred Organization [facility] Referred Provider LALI MAXWELL Referred Address [address] [place], [place],[address] Referred Provider Specialty Urology Referral Priority Routine Referral Appointment Date 2022-07-23 General Notes Nicci Aguilera 10:01:48 AM >received today, attachments made, notes locked and referral faxed Nicci Aguilera 06/02/2022 10:04:31 AM >faxed first attempt letter Nicci Aguilera 06/09/2022 08:22:26 AM >faxed second attempt letter [employer] Other Reason for referral (narrative)No reason for referral information availableL[facility] Work Phone: Reason for visit Narrativewants a referral to a urologistNost. [facility] [employer] Other Summary Purpose Family History Relationship Condition Age at Onset Recorded Date/T ruddy mother Asthma Unknown Chronic obstructive pulmonary diseaseUnknownDeceasedUnknownfatherCerebral aneurysmUnknownPulmonary emphysemaUnknownbrotherMyocardial infarctionUnknown Malignant neoplasm of prostateUnknown Advance Directives Advance Directive Response Recorded Date/ Time Advance Directives No August 23 4:40pm Advance Directive Response Recorded Date/ Time Advance Directives No August 23 021 5:40pm Chief Complaint and Reason for Visit Chief Complaint Admit Date flu shot March 01, 2024 1 :30pm CC Adult Risk Stratification February 1:26pm Screening March 22, 2024 7:25am Chief Complaint Admit Date poison frederick December 12, 2024 1: 32pm Chief Complaint Admit Date poison frederick December 12, 2024 1: 32pm pain on left side February 22, 2025 1 0:11am Reason for Visit Admit Date Gastroesophageal reflux dise ase with esophagitis without hemorrhage December 12, 2024 1:32pm Allergic contact dermatitis December 12, 2024 1:32pm Additional Source Comments REASON FOR VISIT (unrecogniz ed section and content) PATIENT COMPLAINING OF LUQ A BDOMINAL PAINNo InformationUpdate Demographics - Additional InfoUpdate Demographics - Additional InfoUpdate Demographics - Personal InfoUpdate Demographics - Additional InfoLeft Knee PainPATIENT HERE FOR 6 WEEK FOLLOW UPPT HERE FOR FOLLOW UP EGD/ COLONOSCOPYquestionsReview LabsInformation for Referralfell and hurt kneesXrayNo InformationFLU ShotNo InformationWellness Patient Care team informatio n (unrecognized section and content) Team Status: Active Member Role Status Dates Ezio Armando DO Primary Care Provider Active Team Status: Inactive Member Role Status Dates Ezio Armando DO Primary Care Provide r, Attending Provider Active Start: March 01, 2024 End: March 01, 2024 Team Status: Active Member Role Status Dates Ezio Armando DO Primary Care Provide r, Attending Provider Active Start: March 02, 2024 Team Status: Inactive Member Role Status Dates Ezio Armando DO Primary Care Provider Active Start: March 22, 2024 End: March 22, 2024Outreach CommunityAttending ProviderActiveStart: March 22, 2024 End: March 22, 2024 Team Status: Inactive Member Role Status Dates Ezio Armando DO Primary Care Provider Active Start: December 12, 2024 End: December 12angela Armando DOAttending ProviderActiveStart: December 12, 2024 End: December 12, 2024 Team Status: Active Member Role/Relationship Status Dates Ezio Armando DO Primary Care Provider Active Team Status: Inactive Member Role/Relationship Status Dates Ezio Armando DO Primary Care Provider Active Start: December 12, 2024 End: December 12enhazel Armando , DOAttending ProviderActiveStart: December 12, 2024 End: December 12, 2024 Team Status: Inactive Member Role/Relationship Status Dates Ezio Armando DO Primary Care Provider Active Start: February 22, 2025 End: February 22enhazel Armando , DOAttending ProviderActiveStart: February 22, 2025 End: February 22, 2025 INFORMATION SOURCE (unrecogn ized section and content) DATE CREATED AUTHOR 08/24/2022 [facility] DATE CREATED AUTHOR AUTHOR'S ORGANIZ ATION 04/01/2024 [facility] DATE CREATED AUTHOR AUTHOR'S ORGANIZ ATION 02/03/2025 [facility] Goals (unrecognized section and content) Goals may be documented in a n alternate section FOR RECORDS PERTAINING TO PATIENTS WHO ARE OR HAVE BEEN ENROLLED IN A CHEMICAL DEPENDENCY/SUBSTANCEABUSE PROGRAM, SOME INFORMATION MAY BE OMITTED. This clinical summary was aggregated from multiple sources. Caution should be exercised in using it in the provision of clinical care. This summary normalizes information from multiple sources, and as a consequence, information in this document may materially change the coding, format and clinical context of patient data. In addition, data may be omitted in some cases. CLINICAL DECISIONS SHOULD BE BASED ON THE PRIMARY CLINICAL RECORDS. [facility]. provides no warranty or guarantee of the accuracy or completeness of information in this document.
[2025-02-24 12:15] LABS: Estimated GFR (African America >60 (>=60 mL/min/1.73m^2); Estimated GFR (Non-African Ame 59 (>=60 mL/min/1.73m^2)
== END 2025-02-24 11:44 | disposition home or self-care (01) ==
LOC: LAB 11:46
PROVIDERS: PCP Internal Medicine; Visit Provider Internal Medicine
DX: R10.32 Left lower quadrant pain (principal)
CPT/HCPCS: 36415; 74177; 82565; Q9967

== ENCOUNTER 2025-03-02 09:35 | Outpatient (OUT) | payer MEDICARE, OTHER, SELFPAY ==
--- NOTE | 2025-03-02 | XR_ITS ---
The [address] [address] Patient Name: TEREZA MCGREGOR MRN: [id number] date: 1955 Sex: F Assigned Patient Location: [facility] Current Patient Location: [facility] Accession/Order Number: [id number] Exam Date: 03/02/2025 10:05 Report Date: 03/02/2025 12:57 At the request of: ADILSON ARMANDO DO Procedure: XR lumbar spine 6V w bending CLINICAL DATA: Back pain with left lower extremity radiculopathy. No recent injury. LEFT HIP WITH AP PELVIS - 3 views COMPARISON: Plain films 07/07/[address] 08/19/2022 AP view of the pelvis as well as AP and frog-lateral views of the left hip were obtained. There is osteopenia. No fracture or dislocation is identified. The hip joint spaces are maintained. There is minimal hypertrophy. The SI joints are intact. No soft tissue abnormalities are present. XR/XR lumbar spine 6V w bending IMPRESSION: NO ACUTE BONY FINDINGS. LUMBAR SPINE WITH FLEXION-EXTENSION VIEWS - 6 views COMPARISON: CT 08/20/2022 AP, lateral (neutral, flexion and extension) and both oblique views were obtained. The bony structures are osteopenic. There is no acute fracture or displacement. No instability is seen. There is no disproportionate disc space narrowing. Tiny endplate spurs and mild lower lumbar facet disease are seen. There are no pars defects. The SI joints are maintained. No paraspinal soft tissue abnormalities are noted. IMPRESSION: OSTEOPENIA AND MINOR DEGENERATIVE CHANGE. NO ACUTE PLAIN FILM FINDINGS. Impression dictated by: Cherrie See M.D. 03/02/2025 12:57 PM Dictation Location: [place] [address] Electronically authenticated by: [id number] Y Date: 03/02/2025 12:57
--- OUTSIDE RECORDS SUMMARY | 2025-03-02 05:35 | XMS_ITS | Continuity of Care Document ---
Author Organization [facility] Address [address] [place] [address] Phone Care Team Providers Care Classification Control Clerk Name Role Phone Ezio Bray DO Primary Care Provider [phone] Ezio Bray DO Attending Provider Care Teams Patient Care Team Team Status: Active Member Role/Relationship Status Dates Ezio Bray DO Primary Care Provider Active Visit Care Team Team Status: Inactive Member Role/Relationship Status Dates Ezio Bray DO Primary Care Provider Active Start: December 12, 2024 End: December 12Kasia Bond ProviderActiveStart: December 12, 2024 End: December 12, 2024 Visit Care Team Team Status: Inactive Member Role/Relationship Status Dates Ezio Bray DO Primary Care Provider Active Start: February 22, 2025 End: February 22Kasia Bond ProviderActiveStart: February 22, 2025 End: February 22, 2025 Patient Care Team Team Status: Active Member Role/Relationship Status Dates Ezio Bray DO Primary Care Provider Active Start: February 24, 2025 Kasia Ribera ProviderActiveStart: February 24, 2025 Patient Care Team Team Status: Inactive Member Role/Relationship Status Dates Ezio Bray DO Primary Care Provider Active Start: March 02, 2025 End: March 02Kasia Bond ProviderActiveStart: March 02, 2025 End: March 02, 2025 Chief Complaint and Reason for Visit Chief Complaint Admit Date poison frederick December 12, 2024 1: 32pm pain on left side February 22, 2025 1 0:11am L Leg/Side Pain/Flu Shot March 02, 2 025 8:59am Reason for Visit Admit Date Gastroesophageal reflux dise ase with esophagitis without hemorrhage December 12, 2024 1:32pm Allergic contact dermatitis December 12, 2024 1:32pm Acute left flank pain February 22, 2025 10:11am Nephrolithiasis February 22, 2025 1 0:11am Abdominal pain February 22, 2025 1 0:11am Back pain with left-sided radiculopathy March 02, 2025 8:59am Hip pain March 02, 2025 8 :59am Allergies, Adverse Reactions, Alerts Allergen Type Severity Reaction Last Updated Verified Status No Known Allergies Allergy Unknown February 22, 2025 10:19amYesActive Social History Smoking Status Status Start Date End Date Date of Observa tion Never smoked tobacco (finding) March 24, 2023 4:10pm Observation Status Observation Response Date of Response Legal Sex Female (finding) [facility] 1955 Family History Relationship Condition Age at Onset Recorded Date/T ruddy mother Asthma Unknown Chronic obstructive pulmonary diseaseUnknownDeceasedUnknownfatherCerebral aneurysmUnknownPulmonary emphysemaUnknownDeceasedUnknownbrotherMyocardial infarctionUnknownMalignant neoplasm of prostateUnknown Problems Active Problems Problem Diagnosis/Recorded Date Onset Date Status C omments Acute left flank pain February 22, 2025 10:51am Unknown Active Medicare annual wellness visit, subsequentSept2024 8:23amUnknown ActiveGastroesophageal reflux disease with esophagitis without hemorrhageMarch 2023 12:02pmUnknownActiveAge-related osteoporosis without current pathological fractureMarch 2023 12:02pmUnknownActiveScreening mammogram for breast cancerSept2024 8:24amUnknownActiveDiverticulosisMarch 2023 10:35amUnknownActiveDiverticulitisOctober 2024 10:51amUnknown ActiveHypercholesterolemiaMarch 2023 12:02pmUnknownActiveNephrolithiasis July 15, 2023 12:02pmUnknownActiveBack pain with left-sided radiculopathy March 02, 2025 9:23amUnknownActiveFamily history of abdominal aortic aneurysmMarch 2023 10:40amUnknownActiveHip painOctober 2024 9:24am UnknownActiveAbnormal ankle brachial index (TORSTEN)July 23, 2023 10:39amUnknown ActiveIBS (irritable bowel syndrome)April 23, 2021 9:35amUnknownActive Inactive/Resolved Problems Problem Diagnosis/Recorded Date Onset Date Status C omments GERD (gastroesophageal reflux disease) April 23, 2021 [...] 8:42am Complies with drug therapyAmitriptyline 10 mg avllkhBuczibkjtiis50IQRTDxbislq as needed for InsomniaDeceer 2020 1:00amMarch 2023 12:04pm Atorvastatin 40 mg qduwedLwvqywpqfvvr35BGWXNkunjRclym 2023 12:00amOctober 2023 8:43amNirmatrelvir-Ritonavir (Paxlovid) 300 mg (150 mg x 2)-100 mg tablets,dose osgzWzgdhvmhxtot9DA.QLPHNTF451Gbpxwrwl 2023 1:00amAugust 2024 1:38pmtake TWO 150 mg tablets of nirmatrelvir with ONE 100 mg tablet of ritonavir twice daily for 5 days POPrednisone 20 mg stpkqfKbknkazmeyjg89YSVX As Taeeuaze717Imppsh 2024 12:00amOctober 2024 10:19am1 tab tid w/ food x 3 days, then bid w/ food x 3 days, then qd w/ food x 3 daysAmoxicillin- Pot Clavulanate 875-125 mg jjgxaiHaehfw1AFQYCYljvj 12 eozkz7880Szrmfct 2024 12:00amComplies with drug therapy Immunizations Immunization Event Date Not Given Reason Dose Number Mental Retardation Nurse Lot Number Reason(s) Given Vaccine Information Statement (VIS) Detail Administration Location COVID-19 mRNA-1273 (Moderna) July 07, 2020 COVID-19 mRNA-1273 (Moderna)August 04OVID-19 mRNA-1273 (Moderna)April 20, 2021Fluzone TIV High-Dose 65YR+March 01, [id number] [facility] CenterFluzone TIV High-Dose 65YR+March 02, [id number] HealthInfluenza vaccine, quadrivalent, adjuvantedOctober [id number] Influenza Quadrivalent PF MDCKOctober [id number], unspecified formulationOctober 2020influenza, unspecified formulationOctober 2021influenza, unspecified formulationOctober 2022influenza, unspecified formulationOctober [id number] Conjugate Vaccine, 13 valent February 06, 2019Pneumococcal Polysacc. Vaccine, 23 valentOctober 2019 Quadrivalent InfluenzaNovember [id number] InfluenzaNovember [id number] Vaccine Recombinant, AdjuvantedSeptember [id number] Tetanus, Diphtheria adult, 5 Lf pres free absOctober 2013 Relevant Diagnostic Tests and/or Laboratory Data Laboratory Results Test Collection Date/Time Result Date/Time Result Interpretation Reference Range Result Comment Performing Site Creatinine February 24, 2025 12:04pm February 24, 2025 1 2:04pm 0.94 mg/dL 0.55-1.02Estimated GFR ()February 24, 2025 12:04pmOctober 2024 12:04pm>60>=60 mL/min/1.73m 2Estimated GFR (Non- AmericanOctober 2024 12:04pmOctober 2024 12:76xp74Oneka low normal>=60 mL/min/1.73m 2 Vital Signs Vital Reading Result Reference Range Collection Date/Time Height 64 [in_i] December 12, 2024 1:45lnNesvjp22.25 kgAugust 2024 1:36pmHeart Rate72 /min 60-100August 2024 1:36pmRespiratory rate12 /ujq60-87Jtqqay 2024 1:36pmBP Asapnjoa358 mm[Hg]100-140August 2024 1:36pmBP Wnffaemfm11 mm[Hg] 60-100August 2024 1:36pmBMI (Body Mass Index)23.6 kg/v0Unwqzz 2024 1:80pjLcsdjb92 [in_i]February 22, 2025 10:85egJjrugb77.40 kgOctober 2024 10:22amHeart Rate68 /pwg48-952Cmplfih 2024 10:22amRespiratory rate12 /min 12-24October 2024 10:22amBP Xcyhvvfw406 mm[Hg]100-140October 2024 10:22amBP Ftvelxifg47 mm[Hg]60-100October 2024 10:22amBMI (Body Mass Index)23.2 kg/w9Wyqssrw 2024 10:26bdMnuein31 [in_i]March 02, 2025 9:96vfIsjrle75.68 kgOctober 2024 9:02amHeart Rate70 /qat90-777Ksomgxq 2024 9:02amRespiratory rate18 /nzy86-59Xeexitp 2024 9:02amOxygen saturation by Pulse jsyzxtnc99 %95-100October 2024 9:02amBP Waqmlkax867 mm[Hg]100-140October 2024 9:02amBP Pdhhqkbxb69 mm[Hg]60-100October 2024 9:02amBMI (Body Mass Index)23.3 kg/d6Kriaagz 2024 9:02am Advance Directives Advance Directive Response Recorded Date/ Time Advance Directives No August 23 5:40pm Insurance Providers Guarantor Apple Mcgregor , M Address [address] [place] [address]Xzmfpbb Info.Home Phone: Payer Group Member ID Coverage Type Subscriber Relationship to Subscriber Effective Date Expiration Date LEANDRO Merchant Roseto Id: [id number] Perry , M Id: [id number] [address] [place] [address] Home Phone: Email: [email or web address]chant [email or web address] Perry , Dipak Id: [id number] [address] [place] [address] Home Phone: Email: [email or web address] Encounters Encounter Location(s) Arrival/Admit Date Discharge/Departure Date Discharge/Departure Disposition Provider(s) Departed Physician/ Provider Office Visit -[facility] December 12, 2024 1:32pm December 12, 2024 1:51pm Discharged to home care or self care (routine discharge) Ezio Bray DO Departed Physician/ Provider Office Visit -[facility] February 22, 2025 10:11am February 22, 2025 10:45am Discharged to home care or self care (routine discharge) Ezio Bray DO Non-patient / Non-visit -[facility] O ctober 2024 12:04pm CRISTÓBAL Riberaeparted Physician/Provider [facility] 20[facility] 8:59amOctober 2024 9:33amDischarged to home care or self care (routine discharge)Ezio Bray DO Recent Diagnosis Onset Date Admit Date Gastroesophageal reflux dise ase with esophagitis without hemorrhage Unknown December 12, 2024 1:32p m Allergic contact dermatitis Unknown 2024 1:32pm Acute left flank pain Unknown February 222024 10:11am Nephrolithiasis Unknown February 22 10:11am Abdominal pain Unknown February 22 10:11am Back pain with left-sided radiculopathy Unknown March 02, 2025 8:59am Hip pain Unknown March 02 8:59am Assessments Diagnosis Onset Date Resolution Status Admit Date Gastroesophageal reflux disease with eso phagitis without hemorrhage acuteAugust 2024 1:32pmAllergic contact dermatitisnoneactiveAugust 2024 1:32pmAcute left flank painacuteOctober 2024 10:11amNephrolithiasis acuteOctober 2024 10:11amAbdominal paininactiveOctober 2024 10:11am Back pain with left-sided radiculopathyacuteOctober 2024 8:59amHip pain acuteOctober 2024 8:59am Plan of Treatment Author [facility] 2024 1:53pmTake Pepcid while taking Prednisone Avoid lying flat after eating or eating prior to bedtime Instructed to use cool compresses for itching. She was instructed to use Zyrtec and Benadryl as needed. Begin Prednisone and take w/ food, taper over 9 days Author [facility] 2024 10:56amShe has a h/o ureteral stones and the flank pain is similar. She was instructed to increase fluids Will schedule CT abdomen to r/o ureteral stone/obstruction She has a h/o ureteral stones and the flank pain is similar. She was instructed to increase fluids Will schedule CT abdomen to r/o ureteral stone/obstruction LLQ tenderness She has hx of diverticulosis w/ episodes of diverticulitis She has tenderness in the LLQ w/o rebound. She was instructed on a low fiber diet and initiated on Augmentin. Will schedule CT abdomen to r/o abscess/perforation Author [facility] 2024 9:33amExamination unremarkable - ROM left hip w/o restriction but does result in discomfort - motor strength 5/5 XR left hip r/o fx/arthritis Declines medical treatment due to GI ADR in past Examination unremarkable - SLR normal - ROM lumbar spine normal XR lumbar spine r/o compression fx Declines medical treatment due to GI ADR in past Future Tests Future scheduled test information is unavailable Pending Tests Test Name Ordered Date Scheduled Date CT abdomen pelvis w con February 22, 2025 10:56 am XR hip LT min 2V(w/wo pelvis)*March 02, 2025 9:23amXR lumbar spine 6V w bendingOctober 2024 9:23am Future Visits Future appointment information is unavailable Future Procedures Future procedure information is unavailable Future Medications Future medication information is unavailable Patient Instructions Patient instructions are unavailable
--- OUTSIDE RECORDS SUMMARY | 2025-03-02 09:43 | XMS_ITS | CCD ---
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 DowneyNitrite Ql (U)NegativeNormalNEGATIVESelect Medical Specialty Hospital - [facility] SouthComment on above:Performed By: #### LASHANDA NEFF #### [facility] [address] [place] [address] Dr. Louie DowenypH (U)5.5 [pH]Normal5-9[facility] SouthComment on above: Performed By: #### LASHANDA NEFF #### [facility] [address] [place] [address] Dr. Louie DowneySPEC GRAVITY<=1.379Xcycxuby2.005-<=1.025[facility] Comment on above:Performed By: #### LASHANDA NEFF #### [facility] [address] [place] [address] Dr. Louie DowneyUA PROTEINNegativeNormalNEGATIVE/ TRACEThe [facility] Comment on above:Performed By: #### LASHANDA NEFF #### [facility] [address] [address] [address] Louie MAJOR INDINDICATEDNormalThe The Jewish HospitalComment on above: Performed By: #### LASHANDA NEFF #### [facility] [address] [address] [address] Louie Epstein Qn (U)0.2 {Immanuel'U}/dLNormal0.2 - 1.0The [facility] HospitalComment on above:Performed By: #### LASHANDA NEFF #### [facility] [address] [address] [address] Louie DowneyPROF 14(COMP METB)on 27-72-8811Qfhpffq [Mass/Vol]3.4 g/dLNormal 3.4-5.0The The Jewish HospitalComment on above:Performed By: #### CMP ####[facility] [address] [place], [place] [address]DrMarcie Downey Albumin/Globulin [Mass ratio]0.9 {ratio}NormalThe The Jewish HospitalComment on above:Performed By: #### CMP ####[facility] Ubdewbibqx[address] [place], [place] [address]Dr.Louie DowneyALP [Catalytic activity/Vol]75 U/LNormal 46-116The [facility] HospitalComveterans affairs [facility] on above:Performed By: #### CMP ####[facility] [address] [address]Dr.Louie DowneyALT [Catalytic activity/Vol]26 U/JMvsxfc62-55Bqs The Jewish HospitalComment on above: Performed By: #### CMP ####[facility] [address] [address]Dr.Louie DowneyAnion gap [Moles/Vol]10.3 mmol/LNormal The The Jewish HospitalComment on above:Performed By: #### CMP ####[facility] Iexgfjnady[address] [place], [place] [address]Dr.Louie ChangAST [Catalytic activity/Vol]22 U/RTionnb74-83Ccw The Jewish HospitalComment on above: Performed By: #### CMP ####[facility] Splkubqwvg6[address] [place], [place] [address]Dr.Yilan ChangBilirubin [Mass/Vol]0.7 mg/dLNormal 0.2-1.0The The [facility] HospitalComment on above:Performed By: #### CMP ####[facility] Jxmqqyipjf[address] [place], [place] [address]Dr.Yilan Downey Calcium [Mass/Vol]9.3 mg/dLNormal8.5-10.1The The Jewish HospitalComment on above: Performed By: #### CMP ####[facility] Rlmrivlaja[address] [place], [place] [address]Dr.Yilan ChangChloride [Moles/Vol]104 mmol/LNormal 98-107The The [facility] HospitalComment on above:Performed By: #### CMP ####[facility] Pkrhzsieby[address] [place], [place] [address]Dr.Yilan ChangCO2 [Moles/Vol]29.4 mmol/OQidqdk06.0-32.0The The [facility] HospitalComment on above: Performed By: #### CMP ####[facility] Zkoqibkxpc[address] [place], [place] [address]Dr.Yilan ChangCreatinine [Mass/Vol]0.97 mg/dLNormal 0.55-1.02The The Jewish HospitalComment on above:Performed By: #### CMP ####[facility] K[address]fiiwjc[address] [place], [place] [address]Dr. Yilan ChangEGFR-AF KYRGYZ>60Normal>=60The The Jewish HospitalComment on above: Performed By: #### CMP ####[facility] Ckaurbzkxd[address] [place], [place] [address]Dr.Yilan ChangEGFR-NON AF BKNUXVNR37 mL/min/1.73m2 Critically low>=60The [facility] HospitalComveterans affairs [facility] on above:Performed By: #### CMP ####[facility] [address]suhukzv[address] [place], [place] [address]Dr. Yilan ChangGlobulin (S) [Mass/Vol]3.7 g/dLNormalThe The [facility] HospitalComment on above:Performed By: #### CMP ####[facility] [address] [address]Dr.Louie ChangGlucose [Mass/Vol]98 mg/iUWoguuc66-733 The The Jewish HospitalComment on above:Performed By: #### CMP ####[facility] [address] [address]Dr.Louie Downey Potassium [Moles/Vol]3.7 mmol/LNormal3.5-5.1The The [facility] HospitalComment on above:Performed By: #### CMP ####[facility] [address] [address]Dr.Yinasrin ChangProtein [Mass/Vol]7.1 g/dLNormal6.4-8.2 [facility] SouthComment on above:Performed By: #### CMP ####[facility] Eycacfgfdf[address] [place], [place] [address]Dr.Louie ChangSodium [Moles/Vol]140 mmol/SVjxtfi049-815Dvv The Jewish HospitalComment on above: Performed By: #### CMP ####[facility] Vfnansush[address] [place], [place] [address]Dr.Louie ChangUrea nitrogen [Mass/Vol]30.0 mg/dL Critically high7.0-18.0The The Jewish HospitalComment on above:Performed By: #### CMP ####[facility] Djxfmganym[address] [place], [place] [address]Dr. Kelllan ChangUrea nitrogen/Creatinine [Mass ratio]30.9 mg/mgNormParkview HealthComment on above:Performed By: #### CMP ####[facility] [address]jvqrejz[address] [place], [place] [address]Dr.Kelllan ChangURINE MICROSCOPIC ONLYon 60-49-9276WZSTQHPBZWTN SEENNormalNONE SEENThe The Jewish HospitalComment on above:Performed By: #### LASHANDA NEFF ####[facility] Bus[address] [place], [place]Dr. Kelllan ChangBacteria identified Cx Nom (U)NOT INDICATEDNormKettering Health Behavioral Medical Centere The Jewish HospitalComment on above: Performed By: #### AISHWARYA UMICRO ####[facility] [address] [place], [place]Dr. Louie ChangCASTNONE SEENNormalNONE SEENSelect Medical Specialty Hospital - Columbus SouthComment on above:Performed By: #### AISHWARYA UMICRO ####[facility] [address] [place], [place]Dr. Louie DowneyCrystals LM Nom (Urine sed)NONE SEENNormalNONE SEENSelect Medical Specialty Hospital - [facility] SouthComveterans affairs ann [facility] healthcare system on above: Performed By: #### AISHWARYA UMICRO ####[facility] [address] [place], [place]Dr. Louie ChangEpithelial cells LM Ql (Urine sed)NONE SEENNormalNONE SEEN /RAREThe The [facility] HospitalComment on above:Performed By: #### AISHWARYA UMICRO ####[facility] [address] [address]Dr. Louie DowneyMUCOUSNONE SEENNormalNONE [facility] Comment on above:Performed By: #### AISHWARYA UMICRO ####[facility] [address] [place], [place] [address]Dr. Louie DowneyUhmrvAAV1-5Qwnbgc2-5 The [facility] HospitalComveterans affairs [facility] on above:Performed By: #### AISHWARYA UMICRO ####[facility] [address] [address]Dr. Louie ChangWBCNONE SEENNormalNONE SEENSelect Medical Specialty Hospital - [facility] SouthComveterans affairs ann [facility] healthcare system on above: Performed By: #### AISHWARYA UMICRO ####[facility] [address] [address]Dr. Louie DowneyDIRECT LDLon 19-45-7602Bggqdopetca in LDL [Mass/Vol]68 mg/dLAultman Orrville HospitalComment on above:Performed By: #### ALT, DLDL ####[facility] [address] [place], [place] [address]ErDr. Louie Elena NORMALSEE BELOWNoalThLake County Memorial Hospital - WestComment on above:Result Comment: <100 mg/dl OPTIMAL 100 - 129 mg/dl NEAR OR ABOVE OPTIMAL 130 - 159 mg/dl BORDERLINE HIGH 160 - 189 mg/dl HIGH >190 mg/dl VERY HIGHPerformed By: #### ALT DLDL ####[facility] [address] [address]Dr. Louie OroPTon 39-59-9358TLC [Catalytic activity/Vol]32 U/JQvbuia35-47Qoa The [facility] HospitalComment on above:Performed By: #### KAYLENE WALL ####[facility] [address] [address]Dr. Louie Grace AUTO DIFFon 04-07-5523RMXA #0.0 103/ulNormal0.0-0.1The The Jewish HospitalComment on above:Performed By: #### DATCBC #### [facility] [address] [place] [address] Dr. Louie DowneyBasophils/100 WBC (Bld)0.5 %Normal0.2-2.0[facility] Comment on above:Performed By: #### DATCBC #### [facility] [address] [place] [address] Dr. Louie Anderson #0.1 103/ulNormal0.0-0.7The The [facility] HospitalComment on above: Performed By: #### DATCBC #### [facility] [address] [place] [address] Dr. Louie Montanezosinophils/100 WBC (Bld)1.3 %Normal0.9-7.0The [facility] Comment on above:Performed By: #### DATCBC #### [facility] [address] [place] [address] Dr. Louie Montanezrythrocyte distribution width (RBC) [Ratio]13.8 %Dcmxbx42.0-15.0 The The Jewish HospitalComment on above:Performed By: #### DATCBC #### [facility] [address] [place] [address] Dr. Louie DowneyHematocrit (Bld) [Volume fraction]41.0 %Ddsccz08.0-48.0The The [facility] HospitalComment on above:Performed By: #### DATCBC #### [facility] [address] [place] [address] Dr. Louie DowneyHemoglobin (Bld) [Mass/Vol]13.2 g/bHOvbypd71.0-16.0The The [facility] HospitalComment on above:Performed By: #### DATCBC #### [facility] [address] [place] [address] Dr. Louie DowneyIG #0.01 10e3/ulNormal0.00-0.03The [facility] on above:Performed By: #### DATCBC #### [facility] [address] [place] [address] Dr. Louie Ledesma %0.2 %Normal0.0-0.5The The [facility] HospitalComment on above: Performed By: #### DATCBC #### [facility] [address] [place] [address] Dr. Louie LopezMPH #2.0 103/ulNormal1.2-3.8The [facility] on above:Performed By: #### DATCBC #### [facility] [address] [place] [address] Dr. Louie Lopezmphocytes/100 WBC (Bld)35.4 %Nyeuzk27.5-60.0The [facility] on above:Performed By: #### DATCBC #### [facility] [address] [place] [address] Dr. Louie SheldonH (RBC) [Entitic mass]29.7 wlHomxgu74.7-34.0The [facility] on above:Performed By: #### DATCBC #### [facility] [address] [place] [address] Dr. Louie SheldonHC (RBC) [Mass/Vol]32.2 g/pAGgyira21.9-35.2The [facility] HospitalComment on above:Performed By: #### DATCBC #### [facility] [address] [place] [address] Dr. Louie SheldonV (RBC) [Entitic vol]92.3 kMCjzpkl90.0-99.0The The [facility] HospitalComment on above:Performed By: #### DATCBC #### [facility] [address] [place] [address] Dr. Louie Everett #0.5 103/ulNormal0.3-0.8The [facility] HospitalComment on above:Performed By: #### DATCBC #### [facility] [address] [place] [address] Dr. Louie Hurstocytes/100 WBC (Bld)9.0 %Normal1.7-12.0The [facility] Comment on above:Performed By: #### DATCBC #### [facility] [address] [place] [address] Dr. Louie Loera #3.0 103/ulNormal1.4-6.5The The [facility] HospitalComment on above:Performed By: #### DATCBC #### [facility] [address] [place] [address] Dr. Louie Elliottutrophils/100 WBC (Bld)53.6 %Qyozsx65.0-75.0The The [facility] HospitalComment on above:Performed By: #### DATCBC #### [facility] [address] [place] [address] Dr. Louie Kruegerlet mean volume (Bld) [Entitic vol]8.5 fLCritically low 9.5-13.5The The [facility] HospitalComment on above:Performed By: #### DATCBC #### [facility] [address] [place] [address] Dr. Louie ShafferT249 103/dqOoduxw195-143Xgh The [facility] HospitalComment on above: Performed By: #### DATCBC #### [facility] [address] [place] [address] Dr. Louie ShaihdC4.44 106/ulNormal4.20-5.40The The [facility] HospitalComment on above:Performed By: #### DATCBC #### [facility] [address] [place] [address] Dr. Louie DowneyWBC5.6 103/ulNormal4.0-11.0The The [facility] HospitalComment on above: Performed By: #### DATJULIAC #### [facility] [address] [address] [address] Louie Houston - VITAMIN Don 09-73-9925QQL D 25-OH28.1 ng/mLNormalThe The [facility] HospitalComment on above:Performed By: #### HANYVITMaggi ####[facility] Sylsdfhxfs[address] [place], [place] [address]Dr. Louie Lynch RANGESSEE BELOWAultman Orrville HospitalComment on above:Result Comment: <20 ng/mL Vit D deficient 20 - <30 ng/mL Vit D insufficient 30 - 100 ng/mL Vit D sufficient >100 ng/mL Potential ToxicityPerformed By: #### DATVITD ####[facility] Ctiihwbcgw[address] [place], [place] [address]Dr. Louie Allen BMP WITH LIPIDon 00-87-0422Htqdg gap [Moles/Vol]10.9 mmol/LNormalThe [facility] HospitalComment on above:Performed By: #### DATBMP ####[facility] Jdgnaxybdb[address] [place], [place] [address]Dr. Louie DowneyCalcium [Mass/Vol]9.0 mg/dLNormal8.5-10.1The The [facility] HospitalComment on above:Performed By: #### DATBMP ####[facility] Qsjvuwtbox[address] [place], [place] [address]Dr. Louie DowneyChloride [Moles/Vol]104 mmol/CYshbtt64-966Fyq The [facility] HospitalComment on above:Performed By: #### DATBMP ####[facility] Zovtxeioke[address] [place], [place] [address]Dr. Yilan ChangCholesterol [Mass/Vol]335 mg/dLCritically high<=200The [facility] HospitalComment on above: Performed By: #### DATBMP ####[facility] Mbrbrumhir[address] [place], [place] [address]Dr. Yilan ChangCholesterol in HDL [Mass/Vol]97 mg/dL Critically jxiv75-42Lrl The [facility] HospitalComment on above:Performed By: #### DATBMP ####[facility] Sfajlfxdwj404[address] [place], [place] [address]Dr. Yilan ChangCholesterol in LDL [Mass/Vol]221.8 mg/dLNormalThLake County Memorial Hospital - WestComment on above:Performed By: #### DATBMP ####[facility] Eikuglobbl7[address] [place], [place] [address]Dr. Yilan ChangCO2 [Moles/Vol]29.2 mmol/YYicpqc54.0-32.0The The [facility] HospitalComment on above: Performed By: #### DATBMP ####[facility] Btleiklvor[address] [place], [place] [address]Dr. Yilan ChangCreatinine [Mass/Vol]0.89 mg/dLNormal 0.55-1.02The The [facility] HospitalComment on above:Performed By: #### DATBMP ####[facility] Krugtkwewb[address] [place], [place] [address]Dr. Yilan ChangEGFR-AF KYRGYZ>60Normal>=60The [facility] HospitalComveterans affairs [facility] on above: Performed By: #### DATBMP ####[facility] Zhkycpmwoc[address] [place], [place] [address]Dr. Yilan ChangEGFR-NON AF KYRGYZ>60Normal>=60[facility] SouthComveterans affairs [facility] system on above:Performed By: #### DATBMP ####[facility] Rzsbzhnvzx[address] [place], [place] [address]Dr. Yilan Downey Glucose [Mass/Vol]98 mg/nMKwldff63-881Rin The [facility] HospitalComment on above: Performed By: #### DATBMP ####[facility] Fzuedwxffb[address] [place], [place] [address]Dr. Louie ChangHDL NORMAL> or = 60 mg/dl - LOW CARDIOVASCULAR RISK <40 mg/dl - HIGH CARDIOVASCULAR RISKAultman Orrville HospitalComment on above:Performed By: #### DATBMP ####[facility] [address] [address]Dr. Yilan ChangLDL CALC NORMALSEE BELOWNoCleveland ClinicComment on above:Result Comment: <100 mg/dl OPTIMAL 100 - 129 mg/dl NEAR OR ABOVE OPTIMAL 130 - 159 mg/dl BORDERLINE HIGH 160 - 189 mg/dl HIGH >190 mg/dl VERY HIGHPerformed By: #### DATBMP ####[facility] Htsxhnuoor[address] [place], [place] [address]Dr. Louie ChangPotassium [Moles/Vol]4.1 mmol/LNormal3.5-5.1The [facility] Comment on above:Performed By: #### DATBMP ####[facility] Docubyirvy[address] [place], [place] [address]Dr. Kelllan ChangSodium [Moles/Vol]140 mmol/L Seuomj201-999YvuSelect Medical Specialty Hospital - [facility] SouthComment on above:Performed By: #### DATBMP ####[facility] Lztlqmpddf[address] [place], [place] [address]Dr. Louie ChangTriglyceride [Mass/Vol]81 mg/dLNormal<=150The [facility] Comment on above:Performed By: #### DATBMP ####[facility] Wsjseovhut[address] [place], [place] [address]Dr. Louie ChangUrea nitrogen [Mass/Vol]30.0 mg/dLCritically high7.0-18.0[facility] SouthComment on above:Performed By: #### DATBMP ####[facility] Exwnfjjglm[address] [place], [place] [address]Dr. Kelllan ChangUrea nitrogen/Creatinine [Mass ratio]33.7 mg/mgNoCleveland ClinicComment on above:Performed By: #### DATBMP ####[facility] Bcoqnaevls[address] [place], [place] [address]Dr. Yilan ChangVLDL CALC16.2 mg/dLAultman Orrville HospitalComment on above:Performed By: #### DATBMP ####[facility] [address]thkdb[address] [place], [place] [address]Iw. Yinasrin ChangMG MAMM SCREEN 3D ENRIKE CADon 34-59-9782AT MAMM SCREEN 3D ENRIKE CADPatient: TEREZA CHANDRA Exam Date: 02/05/2022 : 1955 Gender:F Ordering : DR EZIO ARMANDO D.O. Admission #: [id number] Family : Order #: [id number] CLICK HERE TO VIEW EXAM RADIOLOGY REPORT [...] prostate cancer at age 68. LOCATION: [facility] BREAST COMPOSITION: Extremely dense, which lowers the [...] by: Gustavo Brewer MD on 02/05/2022 at 09:08[facility] Orrville HospitalXR DEXA BONE DENSITYon 53-28-8039KD DEXA BONE DENSITYEXAMINATION: XR DEXA BONE DENSITY, [...] Electronically authenticated by: FRANCISCO MOORE Date: 2022-02-05 08:31NormParkview HealthFERRITINon 19-21-3778Rnisklfm [Mass/Vol]70.0 ng/mLNormal 8.0-252.0The [facility] HospitalComment on above:Performed By: #### FETIBC, FERR #### [facility] [address] [place] [address] Dr. Louie Sabillon AND TIBCon 01-27-2022% HHOUKTRJUE29.9 %NormalThe The [facility] HospitalComment on above:Performed By: #### FETIBC, FERR #### [facility] [address] [place] [address] Dr. Louie Sabillon [Mass/Vol]67.0 ug/iFCvrahr12.0-170.0The [facility] Comment on above:Performed By: #### FETIBC, FERR #### [facility] [address] [place] [address] Dr. Louie Hernandez GJTIZD522.0 ug/sAVtbctl413.0-450.0The [facility] Comment on above:Performed By: #### FETIBC, FERR #### [facility] [address] [place] [address] Dr. Louie Marley 75-71-8162KSR3.682 uIU/mLNormal0.358-3.740The [facility] HospitalComment on above:Performed By: #### TSH #### [facility] [address] [place] [address] Dr. Louie Gilbertd-19 PCR (CVDTB)on 91-95-7227TOXJ-CoV-2 (COVID-19) RNA LEVAR+probe Ql (Unsp spec)DetectedCritically abnormalNOT DETECTEDThe [facility] HospitalComment on above:Result Comment: This test is not yet approved or cleared by the [place] FDA. When there are no FDA-approved or cleared tests available, and other criteria are met, FDA can make tests available under an emergency access mechanism called an Emergency Use Authorization (EUA). The EUA for this test is supported by the Statistical Programmer Analyst of Health and Human Service's (HHS's) declaration [...] be used). Performed By: #### CVDTBH #### [facility] [address] [place] [address] Dr. Louie Downey Vital Signs Date TimeVital SignValuePerforming LmawatnfcZfabuljk35-70-3103 10:22-0400Body ytcfti736.56 cmBenjamin Ball DO Work Phone: [facility]10-22-2025 10:22-0400 Body mass index (BMI) [Ratio]23.2 kg/o4Yngekmin Ball DO Work Phone: [phone] [place], [place] [address]10-22-2025 10:22-0400 Body qdejnw10.4 kgBenjamin Ball DO Work Phone: [phone] [place], [place] [address]10-22-2025 10:22-0400 Diastolic blood sbpvagoq99 mm[Hg]Ezio Ball DO Work Phone: [phone] [place], [place] [address]10-22-2025 10:22-0400 Heart rate68 /minBenjamin Ball DO Work Phone: [phone]10-22-2025 10:22-0400 Respiratory rate12 /minBenjamin Ball DO Work Phone: [phone]10-22-2025 10:22-0400 Systolic blood fjzsafcg066 mm[Hg]Ezio Ball DO Work Phone: [facility]08-11-2025 13:36-0400 Body .56 cmBenjamin Ball DO Work Phone: [phone]08-11-2025 13:36-0400 Body mass index (BMI) [Ratio]23.6 kg/f0Trnobvqa Ball DO Work Phone: [phone]08-11-2025 13:36-0400 Body fvooqe78.25 kgBenjamin Ball DO Work Phone: [phone]08-11-2025 13:36-0400 Diastolic blood mm[Hg]Ezio Ball DO Work Phone: [phone]08-11-2025 13:36-0400 Heart rate72 /minBenjamin Ball DO Work Phone: [phone] [place], [place] [address]908-11-2025 13:36-0400 Respiratory rate12 /minBenjamin Ball DO Work Phone: [phone]08-11-2025 13:36-0400 Systolic blood vezlypax144 mm[Hg]Ezio Ball DO Work Phone: [phone]03-12-2024 13:03-0400 Blood Pressure LocationJENNIFER MECHE [facility] [place]03-12-2024 13:03-0400Diastolic blood tnyduwvf60 mm[Hg]IRIS MECHE [facility] [place]03-12-2024 13:03-0400Heart rate83 /minJENNIFER MECHE [facility] [place]03-12-2024 13:03-0400Respiratory rate16 /minJENNIFER MECHE [facility] [place]03-12-2024 13:03-0400Systolic blood ebeqdaqm849 mm[Hg]IRIS CHANDRA [facility] [place]11-21-2023 15:30-0500Body htkjre392.56 cmBenjamin Ball Other [employer] Other 11-21-2023 15:30-0500Body mass index (BMI) [Ratio] 23.58 kg/t4Pctojmoy Ball Other [place] [employer] Other 11-21-2023 15:30-0500Body .32 kgBenjamin Ball Other [facility] Other 11-21-2023 15:30-0500Diastolic blood mm[Hg] Ezio Ball Other [place] [employer] Other 11-21-2023 15:30-0500Respiratory rate12 /minBenjamin Ball Other [employer] Other 11-21-2023 15:30-0500Systolic blood ckscpcim396 mm[Hg] Ezio Ball Other [place] [employer] Other 03-22-2023 10:00-0400Blood Pressure LocationKathy Lue [facility] [facility] [place]03-22-2023 10:00-0400Diastolic blood hersvxjo51 mm[Hg]Lali Lue [facility] [place]03-22-2023 10:00-0400Heart rate67 /minKathy Lue [facility] [place]03-22-2023 10:00-0400Systolic blood ogsznfil605 mm[Hg]Lali Maxwell [facility] [place]02-08-2023 15:15-0500Body giimqy557.56 cmBenjamin Ball Other [employer] Other 02-08-2023 15:15-0500Body mass index (BMI) [Ratio] 21.69 kg/u0Ompmbgua Ball Other [employer] Other 02-08-2023 15:15-0500Body hpvfgi45.34 kgBenjamin Ball Other [employer] Other 02-08-2023 15:15-0500Diastolic blood wwijijde53 mm[Hg] Ezio Ball Other [employer] Other 02-08-2023 15:15-0500Respiratory rate12 /minBenjamin Ball Other [employer] Other 02-08-2023 15:15-0500Systolic blood hbhqspad283 mm[Hg] Ezio Ball Other [employer] Other 01-20-2023 10:30-0500Body xkwfya455.56 cmBenjamin Ball Other [employer] Other 01-20-2023 10:30-0500Body mass index (BMI) [Ratio] 21.63 kg/q7Qhplpayg Ball Other [employer] Other 01-20-2023 10:30-0500Body yxcohu64.15 kgBenjamin Ball Other [employer] Other 01-20-2023 10:30-0500Diastolic blood mm[Hg] Ezio Armando Other [employer] Other 01-20-2023 10:30-0500Respiratory rate12 /minBenjamin Ball Other [employer] Other 01-20-2023 10:30-0500Systolic blood mm[Hg] Ezio Armando Other [employer] Other 01-03-2022 17:00-0500Body .56 cmDavid Hykes Other [employer] Other 01-03-2022 17:00-0500Body mass index (BMI) [Ratio] 21.97 kg/h0Wadnr Hykes Other [employer] Other 01-03-2022 17:00-0500Body .06 kgDavid Hykes Other [employer] Other 01-03-2022 17:00-0500Diastolic blood mzattdkx60 mm[Hg] Gustavo Lundberg Other [employer] Other 01-03-2022 17:00-0500Systolic blood eczamimi958 mm[Hg] Gustavo Lundberg Other [employer] Other 12-07-2021 14:00-0500Body .56 cmDavid Hykes Other [employer] Other 12-07-2021 14:00-0500Body mass index (BMI) [Ratio] 21.45 kg/s7Ntmpb Hykes Other [employer] Other 12-07-2021 14:00-0500Body feokha03.7 kgDavid Hykes Other [employer] Other 10-20-2021 16:00-0400Body .56 cmDavid Hykes Other [employer] Other 10-20-2021 16:00-0400Body mass index (BMI) [Ratio] 21.97 kg/c0Jxgsj Hykes Other [employer] Other 10-20-2021 16:00-0400Body aidhzj61.06 kgDavid Hykes Other [employer] Other Encounters Encounter DateEncounter TypeCare ProviderFacilityStart: 02-22-2025 End: 78-59-2278vzxssizzphXdvihmvt Ball DO Work Phone: [facility] 02-22-2025 End: 05-07-5697Kdyzdvc encounter procedureBenjamin Ball DO-[facility] Work Phone: Start: 31-98-8373phugsyiqchEjkiyj TannaFacility:EU BellevueStart: 36-41-3077Tjwjgxw encounter procedureBenjamin Ball DO Work Phone: [facility]: 12-12-2024 End: 62-22-7170fodwyfiytfPqxcremg Ball DO Work Phone: [facility] Work Phone: Start: 12-12-2024 End: 96-57-9908Ubalmmz encounter procedureBenjamin Ball DO-[facility] Work Phone: Start: 03-22-2024 End: 27-12-7915Jsvapqif ReferredBensandramin Ball DO Work Phone: [facility] Work Phone: Start: 03-22-2024 End: 12-17-8504nzhkpttndoBbexgqbi Ball DO Work Phone: [facility] Work Phone: Start: 66-00-8713Buj-patient / Non-visitBensandramin Ball DO Work Phone: [facility] Work Phone: Start: 03-01-2024 End: 16-20-6652Rhxkiiy encounter procedureBensandramin Ball DO Work Phone: [facility] Work Phone: Start: 07-14-2023 End: 25-99-1870Kbtuqco encounter procedureJENNIFER E MECHE [facility] [place] start: 03-24-2023 End: 73-40-0872pizoykfsgxMaihduzv Ball Other [employer] [place] Other Start: 47-24-7227Xmaksqc encounter procedureBenjamin Wes [facility] Medical ClinicStart: 02-17-2023 End: 30-28-1466pxhkcendbeTxraheez Ball Other [employer] [place] Other Start: 83-63-3550Mkcasitww encounterBenjaserafin Armando Medical ClinicStart: 02-13-2023 End: 69-40-1572zrottgazyuAlpbtvgy Ball Other [employer] [place] Other Start: 38-63-9378Cafnfdj evaluation of patient and reportBenjamin BallFPG [facility] ClinicStart: 08-19-2022 End: 11-71-6575jhredbjcgjNG FRANCISCO MOOREFacility:K1Dpofz: 07-23-2022 End: 71-12-7519Wyygcbu encounter Hector Maxwell [facility] [place] start: 07-07-2022 End: 25-51-5301qhvcphnfwgGaldvexg Ball Other [employer] Other Start: 24-76-3520Sfkemyuyl encounterBenjamin BallFPG [facility] ClinicStart: 07-06-2022 End: 84-09-3314cwhmsfaljsNI EZIO ARMANDOFacility:T5Mrcyo: 06-18-2022 End: 93-33-4718ssukbddtmzRnflfxbj Ball Other [employer] Other Start: 01-98-1623Nbuvclaze encounterBenjamin BallFPG [facility] ClinicStart: 06-11-2022 End: 98-64-5977evozlqqqyjQxdcvrwt Ball Other [employer] Other Start: 10-84-6844Pkippg outpatient visit 15 minutes Ezio BallFPG [facility] ClinicStart: 05-26-2022 End: 78-09-3228vnudgzgyaiWoikeida Ball Other [employer] Other Start: 46-87-5804Hfwxgxbvn encounterBenjamin BallFPG [facility] ClinicStart: 05-23-2022 End: 26-19-1752ltdjqtkadkOriribpw Ball Other [employer] Other Start: 11-13-4776Pceara outpatient visit 15 minutes Ezio BallFPG [facility] ClinicStart: 05-08-2022 End: 41-99-7183ztwglenvqmMgajgvzj Ball Other [employer] Other Start: 14-52-4232Iyrgmnboi encounterBenhazel Armando Medical ClinicStart: 05-07-2022 End: 40-25-6993hyectfhuufLA NONE LISTED REQUESTFacility:Z0Jmeei: 03-29-2022 End: 57-81-2261hcggetinynPF BJ ZAVALA .Facility:V0Mqrmg: 03-18-2022 End: 59-92-5805pxtffckfxjVQ EZIO BALLFacility:O9Ewwot: 02-05-2022 End: 05-57-7597bgbjhyaexnBU EZIO BALLFacility:S3Xrxvb: 87-45-4475Esjgy health examinationBeyana Armando Other [employer] Other Start: 83-42-9272Qrukxzenspnvi examination normal Ezio Armando Other [employer] Other Start: 01-27-2022 End: 14-46-8258dzwgioyypwAE EZIO BALLFacility:V1Wswyl: 12-03-2021 End: 48-19-6598xbckhxscrrED EZIO ARMANDOFacility:Y6Absrk: 08-21-2021 End: 53-92-6083qqomudxktrAnlcnk Kelley Other [employer] Other Start: 69-89-7870Htsunfxgf encounterJustferny AguirreFPJosefa Paulson OrthopedicsStart: 05-06-2021 End: 91-40-7837qbwefdzikfBuioo Hyshaw Other [employer] Other Start: 53-32-4128Xsxrng outpatient visit 25 minutes Gutsavo Moreno GastroenterologyStart: 04-09-2021 End: 22-86-1521yvkmtexycrHndqj Hykes Other [facility] [place] Other Start: 18-00-9918Woudjm outpatient visit 25 minutes Gustavo Moreno GastroenterologyStart: 03-25-2021 End: 19-93-2377vbtzmmlkmbKuatpp Kelley Other [place] Other Start: 55-59-6197Uraifb outpatient visit 25 minutes Nahum Paulson OrthopedicsStart: 41-20-7394Siklqwlcf by computer link Gustavo Moreno GastroenterologyStart: 60-71-3828Yeflqr outpatient new 45 minutes Gustavo Moreno GastroenterologyStart: 77-09-4213Wkhaiquxi encounterDavimaggi ROUSE Gastroenterology Procedures DateProcedureProcedure DetailPerforming ClinicianStart: 05-04-2020 Esophagogastroduodenoscopy gastric outlet reductionKathy Lue Start: 32-10-3705Yykbfel examination of patientBenjamin Ball Other Start: 65-84-9478Sbrfqbhaf mammographyBenjamin Ball Other Start: 96-45-1987Pclzocjz and curettageKathy Lue ColonoscopyKathy Lue Depression screeningBenjamin Ball Other MammographyBenjamin Ball Other Screening for malignant neoplasm of breastBenjamin Ball Other Screening for osteoporosisBenjamin Ball Other Immunizations Immunization DateImmunizationNotesCare TbkwocxlPbcvjvpg12-38-6747qpxeioclu, high dose seasonal, preservative-freeBenjamin Ball DO Work Phone: [facility]10-13-2023influenza, high dose seasonal, preservative-freeBenjamin Ball Other [employer] [place] Other 10020722-02-3474dkbnkclku virus vaccine, unspecified formulationBenjamin Ball DO Work Phone: [facility]10-20-2022influenza virus vaccine, split virus (incl. purified surface antigen)Ezio Armando Other [facility] [place] Other 10-682580-74-9104wemwyxkbd virus vaccine, unspecified formulationBenjamin Ball DO Work Phone: [facility]12-18-2021SARS-CoV-2 (COVID-19) mRNA-1273 vaccineKathy Lue [facility] [place]Comment on above:Result Comment: 2022-07-22: OSP7261-95-6266knsphbgot virus vaccine, split virus (incl. purified surface antigen)Ezio Armando Other [facility] Other 10-777146-36-6314gtyhmhnac virus vaccine, unspecified formulationBenjamin Ball DO Work Phone: [facility]07-22-2021Kenalog -40 mgDavid Hykes Other [place] [employer] Other 04-320165-42-8446Gghlnwh -40 mgDavid [employer] Other [place] [employer] [place] Other 04-480628-31-8046XZXT-ZxB-1 (COVID-19) mRNA-1273 vaccineKathy Lue [facility] [place]03-06-2021SARS-CoV-2 (COVID-19) mRNA-1273 vaccineKathy Lue [facility] [place]10-15-2020Influenza vaccine, quadrivalent, adjuvantedBenjamin Ball DO Work Phone: [facility]10-15-2020influenza virus vaccine, unspecified formulationKathy Lue [facility] [place]10-15-2020pneumococcal polysaccharide vaccine, 23 valentKathy Lue [facility] [place]09-13-2020zoster vaccine recombinantKathy Lue [facility] [place]10-06-2019influenza virus vaccine, unspecified formulationKathy Lue [facility] [place]10-06-2019Influenza, injectable, Madin Adilia Canine Kidney, preservative free, quadrivalentBenjamin Ball DO Work Phone: [facility]10-06-2019 pneumococcal conjugate vaccine, 13 valentKathy Lue [facility] [place]11-05-2018influenza virus vaccine, unspecified formulationKathy Lue [facility] [place]11-05-2018influenza, injectable, quadrivalent, preservative freeBenjamin Ball DO Work Phone: [facility]10-31-2017influenza virus vaccine, unspecified formulationBenjamin Ball DO Work Phone: [facility]10-31-2017influenza, unspecified formulationKathy Lue [facility] [place]11-06-2015influenza virus vaccine, unspecified formulationKathy Lue [facility] [place]11-06-2015influenza, injectable, quadrivalent, preservative freeEzio Armando DO Work Phone: [facility]10-28-2014tetanus and diphtheria toxoids, adsorbed, preservative free, for adult use (5 Lf of tetanus toxoid and 2 Lf of diphtheria toxoid)Ezio Armando Other [facility] Payers DatePayer CategoryPayerPolicy [id number] 1960Medicare [id number] [id number] [id number] [id number] 2.16840.1.613091.3.57[id number] 2.840.1.357322.3.57[id number] 2.840.1.662362.3.57[id number] 2.840.1.817963.3.57[id number] 2.16840.1.271829.3.57[id number] 2.16840.1.423459.3.57[id number] 2.16840.1.433593.3.57[id number] 2.16840.1.1[id number] 2..840.1.556582.3.579.2.593Unknown [id number] 2..840.1.0[id number] 2..840.1.877532.3.579.2.531 Social History DateTypeDetailFacilitySex Assigned [facility] 07-23[facility]22 End: 76-64-9120Bkmawpz smoking statusNever smoked tobacco (finding)[facility] [place]Tobacc smoking statusNever [facility]: 07-32-5857Oim Patient sex unknown (finding)[facility] 1955 [facility] Functional Status XohuFmjjxsymgdKtgcpjXbxsqnmt83-49-5611Wwmylqzbxr StatusN/AExec[facility] of [facility] [place]03-22-2023Functional StatusN/AExec[facility] [place] Clinical Notes 02-20-2021 to 12-12-2024 Note Date & RbgsYsppRnorxhqh93-29-2394 Evaluation note* Diagnosis Onset Date Resolution Status Admit Date Gastroesophageal reflux disease with eso phagitis without hemorrhage acuteAugust 2024 1:32pmAllergic contact dermatitisnoneactiveAugust 2024 1:32pm [facility] Work Phone: [phone] Radiology Diagnostic study noteDAY[facility] [place] [address] Ultrasound Report Signed Patient: Tereza Chandra MR#: [id number] : 1955 Acct:[id number] Age/Sex: 68 / F ADM Date: 4 Loc: Room: Type: [facility] Attending Dr: Allison Community Ordering Provider: ALLISON FRANCIS Date of Service: 03/22/24 US/US community outreach aorta: SCREENING Copies to: COMMUNITY,OUTREACH ~ Screening ultrasound of the abdominal aorta HISTORY: Screening There is no abdominal aortic aneurysm. Iliac arteries unremarkable. Atherosclerosis US/US community outreach aorta IMPRESSION: No abdominal aortic aneurysm. Impression dictated by: Domo Romero M.D.03/22/2024 9:22 PM Dictation Location: [place] [address] Tech: Safia Buckley Transcribed By: KATHERIN 03/22/242121 Dictated By: Domo Romero DO 03/22/242121 Signed By: 03/22/242121 [facility]03-12-2024 Hospital Discharge instructions Patient Education 07/14/2023 13:00:49 [...] include: ?8 oz (237 mL) of milk, gkjtuig-cftndfvmrdzl-rhouc milk, and calcium- fortifiedfruit juice. Calcium-fortified means [...] ?Spinach (cooked), rhubarb, beets, sweet potatoes, and Samoan chard. ?Peanuts. ?Potato chips, anguillan fries, and baked potatoes with skin on. ?Nuts and nut products. ?Chocolate. If you regularly take a diuretic medicine, make sure to eat at least 1 or 2 servings of fruits or vegetables that are high in potassium each day. These include: ?Avocado. ?Banana. ?[place], prune, carrot, or tomato juice. ?Baked potato. [...] magnesium, fish oil, or vitamin B6. Take csnu-yrm-lvwosdw and prescription medicines only as told by [...] Casseroles. Pizza. Lasagna. Frozen meals. Potato chips. Haitian fries. The items listed above may not [...] provider. Document Revised: 07/31/2022 Document Reviewed: 07/31/2022 [employer] Patient Education 2022 [employer]. Follow Up Care 07/14/2023 11:42:30 With:IRIS CHANDRA PA-C, URL Address: [address] [facility] [place] [address] When: Unknown [facility] [place] 11-21-2023 Evaluation note* Encounter Date Diagnosis Assessment [...] Z87.442)Push fluids. No s/s recurrent renal colic [employer] Other 03-22-2023 Hospital Discharge instructions Patient Education [...] include: ?Spinach. ?Rhubarb. ?Beets. ?Potato chips and anguillan fries. ?Nuts. If you regularly take a diuretic medicine, make sure to eat at least 1 2 fruits or vegetables high in potassium each day. These include: ?Avocado. ?Banana. ?[place], prune, carrot, or tomato juice. ?Baked potato. [...] Casseroles. Pizza. Lasagna. Frozen meals. Potato chips. Haitian fries. Summary You can reduce your risk [...] 08/15/2011 Document Revised: 08/10/2019 Document Reviewed: 03/31/2017 [employer] Patient Education 2019 [employer]. Follow Up Care 05/29/2022 11:33:44 With:Hans MONROE, OSCAR Mojica, URO Address: When: Unknown [facility] [place] 03-06-2023 Evaluation note* Encounter Date Diagnosis Assessment Notes Treatment Notes Treatment Clinical Notes Jul, Acute pain of right knee (ICD-10 - M25.561) [employer] Other 03-06-2023 NotePROCEDURE: XR KNEE RT 4V or > COMPARISON: 09/05/2019 HISTORY: Pain of right knee joint FINDINGS: BONES:No acute fracture or dislocation. Moderate narrowing of medial joint space. Degenerative osteoarthritis with marginal osteophyte formation anterior and medial compartments SOFT TISSUES:Negative. No visible soft tissue swelling. EFFUSION:None visible. OTHER: Negative. IMPRESSION: Moderate medial compartment osteoarthritis Electronically authenticated by: GUSTAVO BREWER Date: 2022-07-07 06:39[facility] Evaluation note* Encounter Date Diagnosis Assessment Notes Treatment Notes Treatment Clinical Notes Jun, Acute pain of right knee (ICD-10 - M25.561) [employer] Other 02-08-2023 Evaluation note* Encounter Date Diagnosis [...] (ICD-10 - S60.221A)Ice and Tylenol as needed. [employer] Other 01-20-2023 Evaluation note* Encounter Date Diagnosis [...] Moisturize. Topical steroids as needed for itching [employer] Other 01-03-2022 Evaluation note* Encounter Date Diagnosis Assessment Notes Treatment Notes Treatment Clinical Notes May, GERD (gastroesophageal reflux di sease) (ICD-10 - K21.9) May,Irritable bowel syndrome with constipation (ICD-10 - K58.1) CONTINUE SENOKOT May,Gastritis (ICD-10 - K29.70) May,ther STOP AMITRIPTYLINE START DICYCLOMINE [employer] Other 12-07-2021 Evaluation note* Encounter Date Diagnosis Assessment Notes Treatment Notes Treatment Clinical Notes Apr, Irritable bowel syndrome with co nstipation (ICD-10 - K58.1) COLONOSCOPY Apr,UQ abdominal pain (ICD-10 - R10.12) Apr,GERD (gastroesophageal reflux disease) (ICD-10 - K21.9) EGD [employer] Other 11-22-2021 Evaluation note* Encounter Date Diagnosis [...] tolerated the injection well without adverse reaction. [employer] Other 10-20-2021 Evaluation note* Encounter Date Diagnosis Assessment Notes Treatment Notes Treatment Clinical Notes Feb, LUQ abdominal pain (ICD-10 - R10 .12) CT ABD / PELVIS W/ CONTRAST CONTINUE AMITRIPTYLINE FOR NOW Feb,onstipation (ICD-10 - K59.00) STOP MIRALAX START LINZESS 72 MCG DAILY Feb,Irritable bowel syndrome with constipation (ICD-10 - K58.1) [employer] Other Evaluation + Plan note Future Appointments Appointment Date:08/05/2023 10:15:00 AM Scheduled Provider:Hans MONROE, Lali Maurice Location:[facility] Appointment Type:URO Office Visit [facility] [place] evaluation noteNo InformationNort [employer] Other Evaluation noteNo assessment information available [facility] Work Phone: History general Narrative - Reported* Type Description Date Medical History GERD Medical HistoryIBSSurgical HistoryD&CHospitalization HistoryNo Hospitalization history information [employer] Other History general Narrative - Reported* Type [...] densityMedical HistoryPain in female pelvisMedical HistoryFatigue Surgical HistoryD&A0271Zbwrkgqk HistoryCOLONOSCOPYSurgical YigyqxxTQI79/2021 Hospitalization HistorySEE SURGICAL [facility] Other History general Narrative - Reported* Type [...] pelvisMedical HistoryFatigue Medical Historyosteonecrosis left femoral headSurgical HistoryD&N3657Fhnfbwbb HistoryCOLONOSCOPYSurgical JkhrzrvYLW98/2021Hospitalization HistorySEE SURGICAL [employer] Other Hospital course Narrative No data available for this section [facility] progress note No data available for this section [facility] [place] reason for referral (narrative)* Reason 07/23/22 Evaluatio n and treatment of ureteral stone. Diagnosis 1 Ureteral stone with hydronephrosis (N13.2) Referral Organization [facility] todd Referring Provider First Name Ezio Referring Provider Last Name Asa Referring Provider Specialty Internal Me dicine Referred Organization [facility] Referred Provider LALI MAXWELL Referred Address [address] [place], [place],[address] Referred Provider Specialty Urology Referral Priority Routine Referral Appointment Date 2022-07-23 General Notes Nicci Aguilera 10:01:48 AM >received today, attachments made, notes locked and referral faxed Nicci Aguilera 06/02/2022 10:04:31 AM >faxed first attempt letter Nicci Aguilera 06/09/2022 08:22:26 AM >faxed second attempt letter [employer] Other Reason for referral (narrative)No reason for referral information availableDiley [facility] Medical Center Work Phone: Reason for visit Narrativewants a referral to a urologistNokindred hospital [facility] [place] Other Summary Purpose Family History Relationship Condition [...] Status: Inactive Member Role/Relationship Status Dates Ezio Armnado DO Primary Care Provider Active Start: December [...] and content) DATE CREATED AUTHOR 08/24/2022 [facility] DATE CREATED AUTHOR AUTHOR'S ORGANIZ ATION 04/01/2024 [facility] DATE CREATED AUTHOR AUTHOR'S ORGANIZ ATION 02/03/2025 [facility] Goals (unrecognized section and content) Goals may [...] BE BASED ON THE PRIMARY CLINICAL RECORDS. [facility] [employer] [facility]. provides no warranty or guarantee of the accuracy or completeness of information in this document.
--- NOTE | 2025-03-02 10:15 | XR_ITS ---
The [address] [address] Patient Name: TEREZA MCGREGOR MRN: [id number] date: 1955 Sex: F Assigned Patient Location: [facility] Current Patient Location: [facility] Accession/Order Number: [id number] Exam Date: 03/02/2025 10:18 Report Date: 03/02/2025 12:57 At the request of: ADILSON ARMANDO DO Procedure: XR lumbar spine 6V w bending CLINICAL DATA: Back pain with left lower extremity radiculopathy. No recent injury. LEFT HIP WITH AP PELVIS - 3 views COMPARISON: Plain films 07/07/[address] 08/19/2022 AP view of the pelvis as well as AP and frog-lateral views of the left hip were obtained. There is osteopenia. No fracture or dislocation is identified. The hip joint spaces are maintained. There is minimal hypertrophy. The SI joints are intact. No soft tissue abnormalities are present. XR/XR hip LT 2V w/ pelvis IMPRESSION: NO ACUTE BONY FINDINGS. LUMBAR SPINE WITH FLEXION-EXTENSION VIEWS - 6 views COMPARISON: CT 08/20/2022 AP, lateral (neutral, flexion and extension) and both oblique views were obtained. The bony structures are osteopenic. There is no acute fracture or displacement. No instability is seen. There is no disproportionate disc space narrowing. Tiny endplate spurs and mild lower lumbar facet disease are seen. There are no pars defects. The SI joints are maintained. No paraspinal soft tissue abnormalities are noted. IMPRESSION: OSTEOPENIA AND MINOR DEGENERATIVE CHANGE. NO ACUTE PLAIN FILM FINDINGS. Impression dictated by: Cherrie See M.D. 03/02/2025 12:57 PM Dictation Location: [place] [address] Electronically authenticated by: [id number] Y Date: 03/02/2025 12:57
== END 2025-03-02 09:36 | disposition home or self-care (01) ==
LOC: RAD 09:39
PROVIDERS: PCP Internal Medicine; Visit Provider Internal Medicine
DX: M25.552 Pain in left hip (principal); M54.10 Radiculopathy, site unspecified; M85.88 Other specified disorders of bone density and structure, other site
CPT/HCPCS: 72114; 73502

== ENCOUNTER 2025-04-19 07:54 | Outpatient (OUT) | payer MEDICARE, OTHER, SELFPAY ==
--- OUTSIDE RECORDS SUMMARY | 2025-04-11 06:58 | XMS_ITS | Continuity of Care Document ---
Author Organization [facility] Address [address] [place] [address] Phone Care Team Providers Care Matte Cutter Name Role Phone Ezio Bray DO Primary Care Provider Ezio Bray DO Attending Provider Care Teams Patient Care Team Team Status: Active Member Role/Relationship Status Dates Ezio Bray DO Primary Care Provider Active Visit Care Team Team Status: Inactive Member Role/Relationship Status Dates Ezio Bray DO Primary Care Provider Active Start: February 22, 2025 End: February 22Kasia Bond ProviderActiveStart: February 22, 2025 End: February 22, 2025 Visit Care Team Team Status: Active Member Role/Relationship Status Dates Ezio Bray DO Primary Care Provider Active Start: February 24, 2025 Kasia Ribera ProviderActiveStart: February 24, 2025 Visit Care Team Team Status: Inactive Member Role/Relationship Status Dates Ezio Bray DO Primary Care Provider Active Start: March 02, 2025 End: March 02Kasia Bond ProviderActiveStart: March 02, 2025 End: March 02, 2025 Patient Care Team Team Status: Inactive Member Role/Relationship Status Dates Ezio Bray DO Primary Care Provider Active Start: April 11, 2025 End: April 11angela Bray DOAttwally ProviderActiveStart: April 11, 2025 End: April 11, 2025 Chief Complaint and Reason for Visit Chief Complaint Admit Date pain on left side February 22, 2025 1 0:11am L Leg/Side Pain/Flu Shot March 02, 025 8:59am L leg is still painful April 11 11:31am Reason for Visit Admit Date Acute left flank pain February 22, 2025 10:11am Nephrolithiasis February 22, 2025 1 0:11am Abdominal pain February 22, 2025 1 0:11am Back pain with left-sided radiculopathy March 02, 2025 8:59am Hip pain March 02, 2025 8 :59am Back pain with left-sided radiculopathy April 11, 2025 11:31am Hip pain April 11, 2025 1 1:31am Allergies, Adverse Reactions, Alerts Allergen Type Severity Reaction Last Updated Verified Status No Known Allergies Allergy Unknown April 11, 2025 11:33amYesActive Social History Smoking Status Status Start Date End Date Date of Observa tion Never smoked tobacco (finding) March 24, 2023 4:10pm Observation Status Observation Response Date of Response Legal Sex [facility] (finding) [facility] 1955 Family History Relationship Condition Age at Onset Recorded Date/T ruddy mother Asthma Unknown Chronic obstructive pulmonary diseaseUnknownDeceasedUnknownfatherCerebral aneurysmUnknownPulmonary emphysemaUnknownDeceasedUnknownbrotherMyocardial infarctionUnknownMalignant neoplasm of prostateUnknown Problems Active Problems Problem Diagnosis/Recorded Date Onset Date Status C omments Acute left flank pain February 22, 2025 9:51am Unknown Active Medicare annual wellness visit, subsequentSeptember 2024 7:23amUnknown ActiveGastroesophageal reflux disease with esophagitis without hemorrhageMarch 2023 11:02amUnknownActiveAge-related osteoporosis without current pathological fractureMarch 2023 11:02amUnknownActiveScreening mammogram for breast cancerSept2024 7:24amUnknownActiveDiverticulosisMarch 2023 9:35amUnknownActiveDiverticulitisOctober 2024 9:51amUnknown ActiveHypercholesterolemiaMarch 2023 11:02amUnknownActiveNephrolithiasis July 15, 2023 11:02amUnknownActiveBack pain with left-sided radiculopathy March 02, 2025 8:23amUnknownActiveFamily history of abdominal aortic aneurysmMar2023 9:40amUnknownActiveHip painOctober 2024 8:24am UnknownActiveAbnormal ankle brachial index (TORSTEN)July 23, 2023 9:39amUnknown ActiveIBS (irritable bowel syndrome)April 23, 2021 8:35amUnknownActive Inactive/Resolved Problems Problem Diagnosis/Recorded Date Onset Date Status C omments GERD (gastroesophageal reflux disease) April 23, 2021 8:35am Unknown Resolved Probl em List clean-up per request of Phys. EHR Cmte Abdominal pain April 23, 2021 9:18am Unknown Resol moises Problem List clean-up per request of Phys. EHR Cmte Medications Medication Status Dose Units Route Directions Qty Days Refills S tart Date Stop Date End Date Reason(s) Instructions Adherence Atorvastatin 40 mg tablet Active 40 MG PO Daily 90 90 3 March 02, 2024 7:42am Complies with drug therapyCelecoxib 200 mg kooboezEurkofjeqrzt574ABRXPgylw21443 March 01, 2025 11:00pmNovember 2024 10:54pmCelecoxib 200 mg capsule Lodqsj576RWQOFzapz29046Wzpcymme 2024 10:54pmComplies with drug therapy Amitriptyline 10 mg qlfxmqYjrmswraqbwo67XYRZKkufiyt as needed for Insomnia April 23, 2021 12:00amMarch 2023 11:04amAtorvastatin 40 mg tablet Xhpbkyatxsrq45ZPNAWxitwGuqmt 2023 11:00pmOctober 2023 7:43am Nirmatrelvir-Ritonavir (Paxlovid) 300 mg (150 mg x 2)-100 mg tablets,dose pack Ouvnbefvpxua9PK.ETRKAPC973Gdyyhisn 2023 12:00amAugust 2024 12:38pm take TWO 150 mg tablets of nirmatrelvir with ONE 100 mg tablet of ritonavir twice daily for 5 days POPrednisone 20 mg dojwllKojmxsaykngj64EKJUMg Lhmgbakf103 December 11, 2024 11:00pmOctober 2024 9:19am1 tab tid w/ food x 3 days, then bid w/ food x 3 days, then qd w/ food x 3 daysAmoxicillin-Pot Clavulanate 875-125 mg iwnwkhSwawnbxlhocl1BWUEZDxtzc 12 hjlkb8664Akzgsoz 21st, 2025 11:00pm April 11, 2025 11:34amPrednisone 20 mg irjdvnIzxmmo1JU.AQZDWJC2790Dbfpolfb 2024 12:00amorally : take tid w/ food x 3 days, then bid w/ food x 3 days, then qd w/ food x 3 days;Complies with drug therapy Immunizations Immunization Event Date Not Given Reason Dose Number [employer] Lot Number Reason(s) Given Vaccine Information Statement (VIS) Detail Administration Location COVID-19 mRNA-1273 (Moderna) July 07, 2020 COVID-19 mRNA-1273 (Moderna)August 04OVID-19 mRNA-1273 (Moderna)April 20, 2021Fluzone TIV High-Dose 65YR+March 01, [id number] 65YR+March 02, [id number] [facility] HospitalInfluenza vaccine, quadrivalent, adjuvantedOctober [id number] Influenza Quadrivalent PF MDCKOctober [id number], unspecified formulationOctober 2020influenza, unspecified formulationOctober 2021influenza, unspecified formulationOctober 2022influenza, unspecified formulationOctober [id number] Conjugate Vaccine, 13 valent February 06, 2019Pneumococcal Polysacc. Vaccine, 23 valentOctober 2019 Quadrivalent InfluenzaNovember [id number] InfluenzaNovember [id number] Vaccine Recombinant, AdjuvantedSeptember [id number] Tetanus, Diphtheria adult, 5 Lf pres free absOctober 2013 Relevant Diagnostic Tests and/or Laboratory Data Laboratory Results Test Collection Date/Time Result Date/Time Result Interpretation Reference Range Result Comment Performing Site Creatinine February 24, 2025 11:04am February 24, 2025 1 1:04am 0.94 mg/dL 0.55-1.02Estimated GFR ()February 24, 2025 11:04amOct2024 11:04am>60>=60 mL/min/1.73m 2Estimated GFR (Non- AmericanOct2024 11:04amOct2024 11:77gn30Vtdyx low normal>=60 mL/min/1.73m 2 Vital Signs Vital Reading Result Reference Range Collection Date/Time Height 64 [in_i] February 22, 2025 9:79qmMeotfc05.40 kgOct2024 9:22amHeart Rate68 /ypj45-233Rcxytai 22nd, 2025 9:22amRespiratory rate12 /duz84-28Uwrexjb 22nd, 2025 9:22amBP Usrxymqk710 mm[Hg]100-140Oct2024 9:22amBP Fohggdzgv12 mm[Hg]60-100Oct2024 9:22amBMI (Body Mass Index)23.2 kg/i2Ekzygcq2024 9:13ymLervfb45 [in_i]March 02, 2025 8:23xbJyunvz26.68 kgOct2024 8:02amHeart Rate70 /uff34-081JuqmxjkMarch 02, 2025 8:02amRespiratory rate18 /uae08-41Xdlogqa 30th, 2025 8:02amOxygen saturation by Pulse vtiisdda52 % 95-100March 02, 2025 8:02amBP Zlbfzjju690 mm[Hg]100-140Oct2024 8:02amBP Jpxofmlfp37 mm[Hg]60-100Oct2024 8:02amBMI (Body Mass Index) 23.3 kg/e4Ohqzafn2024 8:17myUeaqla34 [in_i]April 11, 2025 11:37am Hfgubt50.04 kgDecember 2024 11:37amHeart Rate65 /yme58-170Uhfopstk 2024 11:37amRespiratory rate12 /ehx17-86Hlxggirc 2024 11:37amBP Texoescz999 mm[Hg]100-140[facility] 2024 11:37amBP Euixseavw63 mm[Hg]60-100[facility] 2024 11:37amBMI (Body Mass Index)23.8 kg/k1Tceofdqo 2024 11:37am Advance Directives Advance Directive Response Recorded Date/ Time Advance Directives No August 23 4:40pm Insurance Providers Guarantor Apple Carlyn , M Address [address] [place] [address]Vryzymn Info.Home Phone: Coverage Status Update:2025 Payer Group Member ID Coverage Type Subscriber Relationship to Subscriber Effective Date Expiration Date MMO Maries [place] Id: [id number] Perry , M Id: [id number] [address] [place] [address] Home Phone: Email: [email or web address] Maries [id number] Perry , M Id: [id number] [address] [place] [address] Home Phone: Email: [email or web address] Perry , M Id: [id number] [address] [place] [address] Home Phone: Email: [email or web address] Encounters Encounter Location(s) Arrival/Admit Date Discharge/Departure Date Discharge/Departure Disposition Provider(s) Departed Physician/ Provider Office Visit -[facility] February 22, 2025 10:11am February 22, 2025 10:45am Discharged to home care or self care (routine discharge) Ezio Bray DO Non-patient / Non-visit -[facility] ctober 2024 12:04pm Kaitlin Ribera Physician/Provider [facility] 8:59amOctober 2024 9:33amDischarged to home care or self care (routine discharge)Kaitlin Ribera [facility] 11:31amDecember 2024 11:56amDischarged to home care or self care (routine discharge)Ezio Bray DO Recent Diagnosis Onset Date Admit Date Acute left flank pain Unknown February 222024 10:11am Nephrolithiasis Unknown February 22 10:11am Abdominal pain Unknown February 22 10:11am Back pain with left-sided radiculopathy Unknown March 02, 2025 8:59am Hip pain Unknown March 02 8:59am Back pain with left-sided radiculopathy Unknown April 11, 2025 11:31am Hip pain Unknown April 11 11:31am Assessments Diagnosis Onset Date Resolution Status Admit Date Acute left flank pain acuteOctober 2024 10:11amNephrolithiasisacuteOctober 2024 10:11am Abdominal paininactiveOctober 2024 10:11amBack pain with left-sided radiculopathyacuteOctober 2024 8:59amHip painacuteOctober 2024 8:59amBack pain with left-sided radiculopathyacuteDecember 2024 11:31amHip painacuteDecember 2024 11:31am Plan of Treatment Author [facility] 20[facility] 9:56amShe has a h/o ureteral stones and the [...] schedule CT abdomen to r/o abscess/perforation Author Ezio Bray [facility] HospitalAuthoredDehuron valley-[facility] hospitaler 2024 10:04pmExamination unremarkable - ROM left hip w/o restriction [...] abdomen pelvis w con February 22, 2025 9:56a m XR hip LT min 2V(w/wo pelvis)*March 02, 2025 8:23amXR lumbar spine 6V w bendingOctober 2024 8:23am Future Visits Future appointment information is unavailable Future Procedures Future procedure information is unavailable Future Medications Future medication information is unavailable Patient Instructions Patient instructions are unavailable
--- NOTE | 2025-04-19 07:57 | MR_ITS ---
The [address] [address] Patient Name: TEREZA MCGREGOR MRN: [id number] date: 1955 Sex: F Assigned Patient Location: MRI Current Patient Location: Accession/Order Number: [id number] Exam Date: 04/19/2025 08:00 Report Date: 04/20/2025 00:10 At the request of: ADILSON ARMANDO DO Procedure: MR lumbar spine wo con MR lumbar spine wo con 04/19/2025 8:36 AM SIGNS AND SYMPTOMS: Low back pain with left lower extremity radiculopathy PROTOCOL: Multiplanar multisequence MR images of the lumbar spine without IV contrast COMPARISON: 03/02/2025 FINDINGS: The bones of the lumbar spine are in anatomic alignment. There is preservation of vertebral body heights. There is mild disc height loss at L1-L2. The marrow signal is within normal limits. The conus terminates at the superior endplate of the L2 vertebral body level. No epidural or paraspinous fluid collection is appreciated. There is a simple cyst in the right renal cortex requiring no further follow-up. At T12-L1: There is a normal disc, central canal, and neural foramen. At L1-L2: There is a normal disc, central canal, and neural foramen. At L2-L3: There is a mild broad-based disc bulge with facet hypertrophy contributing to mild right neural foraminal stenosis. At L3-L4: There is a focal left foraminal and lateral zone disc protrusion with mild left neural foraminal narrowing. Disc closely approximates the exiting left L3 nerve roots. At L4-L5: There is a broad-based disc bulge with a superimposed right foraminal disc protrusion. There is mild spinal canal stenosis with moderate right neural foraminal narrowing. There is mass effect on the exiting right L4 nerve roots. At L5-S1: There is facet hypertrophy. There is a focal central T2 hyperintense annular fissure. There is no significant spinal canal or neural foraminal narrowing. MR/MR lumbar spine wo con IMPRESSION: At L3-L4: There is a focal left foraminal and lateral zone disc protrusion with mild left neural foraminal narrowing. Disc closely approximates the exiting left L3 nerve roots. At L4-L5: There is a broad-based disc bulge with a superimposed right foraminal disc protrusion. There is mild spinal canal stenosis with moderate right neural foraminal narrowing. There is mass effect on the exiting right L4 nerve roots. Impression dictated by: Duke Moody M.D. 04/20/2025 12:10 AM Dictation Location: [place] [address] Electronically authenticated by: [id number] Y Date: 04/20/2025 00:10
== END 2025-04-19 07:55 | disposition home or self-care (01) ==
LOC: MRI 07:55
PROVIDERS: PCP Internal Medicine; Visit Provider Internal Medicine
DX: M54.10 Radiculopathy, site unspecified (principal); M47.816 Spondylosis without myelopathy or radiculopathy, lumbar region; M51.369 Other intervertebral disc degeneration, lumbar region without mention of lumbar back pain or lower extremity pain
CPT/HCPCS: 72148